=== PATIENT | male | born 1930 | race Caucasian/White ===

== ENCOUNTER → 2016-12-09 | Outpatient (REF) | payer MEDICARE ==
[~2016-12-09] MED LIST: /GLIP10TAB PO; /MOXI40TA PO; ASPI81TA85 PO; CORE25TA PO; LAMISIL; METF500T PO; SIMV10TA2 PO; SIMVPOW2 PO; TYLE650T30 PO; TYLENOL PO
== END ==
LOC: M LAB REF 12:57
PROVIDERS: ATTEND Nurse Practitioner Family
DX: R05 Cough (principal)

== ENCOUNTER 2018-04-08 17:34 | Inpatient (IN) | payer MEDICARE ==
[2018-04-08 18:26] LABS: BASO % 0.4 % (0.0-1.0); HEMATOCRIT 39.8 % (42.0-52.0); HEMOGLOBIN 13.4 g/dl (13.5-17.5); IMMATURE GRANULOCYTE % 0.4 % (0-3.0); LYMPH % 1.4 % (24.0-44.0); MEAN CORPUSCULAR HGB CONC 33.7 g/dl (32.0-36.5); MEAN CORPUSCULAR VOLUME 92.1 fl (80.0-96.0); MONO % 0.7 % (0.0-5.0); NEUTROPHILS # 2.7 10^3/uL (1.8-7.7); NEUTROPHILS % 97.1 % (36.0-66.0); PLATELET COUNT, AUTOMATED 122 10^3/uL (150-450); RED BLOOD COUNT 4.32 10^6/uL (4.30-6.10); RED CELL DISTRIBUTION WIDTH 12.8 % (11.5-14.5); WHITE BLOOD COUNT 2.8 10^3/uL (4.0-10.0)
[2018-04-08 18:31] LABS: VENOUS HCO3 22.5 MEQ/L (23.0-27.0); VENOUS O2 SATURATION 86.7 % (60.0-80.0); VENOUS PARTIAL PRESSURE CO2 41.7 mmHg (38.0-50.0); VENOUS PARTIAL PRESSURE O2 51.8 mmHg (30.0-50.0); VENOUS PH 7.349 UNITS (7.330-7.430); VENOUS STANDARD HCO3 21.7 MEQ/L; VENOUS TOTAL CO2 23.7 MEQ/L (24.0-28.0)
[2018-04-08] MEDS: IPRATROPIUM 0.5MG/ALBUTEROL 2.5MG INH SOL UD 3ML (DUONEB)(J7620) NEB (18:34)
[2018-04-08 18:40] LABS: ALBUMIN 2.7 GM/DL (3.2-5.2); ALBUMIN/GLOBULIN RATIO 0.77 (1.00-1.93); ALKALINE PHOSPHATASE 150 U/L (45-117); ALT/SGPT 380 U/L (12-78); ANION GAP 12 MEQ/L (8-16); AST/SGOT 402 U/L (7-37); BILIRUBIN,DIRECT 2.8 MG/DL (0.0-0.2); BLOOD UREA NITROGEN 27 MG/DL (7-18); CALCIUM LEVEL 8.3 MG/DL (8.8-10.2); CARBON DIOXIDE LEVEL 24 MEQ/L (21-32); CHLORIDE LEVEL 103 MEQ/L (98-107); CK-MB VALUE MASS < 1.0 NG/ML (<3.6); CPK CREATINE PHOSPHOKINASE 28 U/L (39-308); CREATININE FOR GFR 1.62 MG/DL (0.70-1.30); GLOMERULAR FILTRATION RATE 43.1 (>35); GLUCOSE, FASTING 221 MG/DL (70-100); MB/CK RELATIVE INDEX 3.57 (< OR =4); NT-PRO BNP 2503 PG/ML (<450); POTASSIUM SERUM 4.6 MEQ/L (3.5-5.1); SODIUM LEVEL 139 MEQ/L (136-145); TOTAL PROTEIN 6.2 GM/DL (6.4-8.2); TROPONIN I 0.02 NG/ML (< 0.10)
[2018-04-08] MEDS: ASPIRIN 81 MG CHEW TABLET PO (18:41)
[2018-04-08] MEDS: NS 1,000 ML IV ×5 (18:41→22:30)
[2018-04-08 18:42] LABS: LACTIC ACID SEPSIS PROTOCOL 4.4 MMOL/L (0.4-2.0)
[2018-04-08 18:53] LABS: POSITIVE DIFF POS FLAG; POSITIVE MORPH POS FLAG
[2018-04-08] MEDS: FUROSEMIDE 20 MG/2 ML VIAL (J1940) IV (19:38)
[2018-04-08 19:46] LABS: INR 1.23; PROTHROMBIN TIME 15.7 SECONDS (12.1-14.4)
[2018-04-08 20:14] LABS: CALCIUM OXALATE CRYSTALS RFX SMALL; KETONE, URINE AUTO RFX NEGATIVE (NEGATIVE); LEUKOCYTE ESTERASE UR AUTO RFX 3+ (NEGATIVE); MUCUS, URINE RFX SMALL (NEGATIVE); NITRITE, URINE AUTO RFX NEGATIVE (NEGATIVE); RBC, URINE AUTO RFX 27 /HPF (0-3); SPECIFIC GRAVITY UR AUTO RFX 1.017 (1.002-1.035); SQUAM EPITHELIAL CELL UR AURFX 2 /HPF (0-6); WBC, URINE AUTO RFX 108 /HPF (0-3)
[2018-04-08] MEDS: MOXIFLOXACIN HCL 400 MG in APPROPRIATE DILUENT 1 EA IV (20:25)
[2018-04-08] MEDS: HumaLOG INSULIN (NovoLOG) PER UNIT SC (21:00)
[2018-04-08] MEDS ORDERED: GLUCOSE 4 GM CHEW TABLET PO (21:30)
[2018-04-08] MEDS ORDERED: GLUCAGON FOR INJ 1 MG VIAL (J1610) SC (21:30)
[2018-04-08] MEDS ORDERED: DEXTROSE 50% 50 ML SYRINGE IV (21:30)
[2018-04-08 21:33] LABS: LIPASE 111 U/L (73-393)
[2018-04-08] MEDS: cefTRIAXone SOD 1 GM in D5W MINI-BAG PLUS 50 ML IV (21:34)
[2018-04-08] MEDS: VANCOMYCIN HCL 500 MG in D5W MINI-BAG PLUS 100 ML IV (21:34)
[2018-04-09] MEDS: HYDROCORTISONE 100 MG/2 ML VIAL (J1720) IV ×5 (00:43→23:42)
[2018-04-09 01:27] LABS: BEDSIDE GLUCOSE 201 MG/DL (83-110)
[2018-04-09] MEDS: NS 1,000 ML IV ×3 (02:05→11:37)
[2018-04-09] MEDS: CEFEPIME HCL 1 GM in D5W MINI-BAG PLUS 50 ML IV ×2 (02:05→13:52)
[2018-04-09] MEDS: PHENYLEPHRINE HCL INJ 50 MG in D5W 500 ML IV (03:02)
[2018-04-09] MEDS: HEPARIN SOD (PORCINE) 5000 UNITS/ML VIAL SC ×3 (05:12→21:39)
[2018-04-09 05:36] LABS: HEMATOCRIT 34.4 % (42.0-52.0); HEMOGLOBIN 11.7 g/dl (13.5-17.5); MEAN CORPUSCULAR HEMOGLOBIN 31.5 pg (27.0-33.0); MEAN CORPUSCULAR VOLUME 92.7 fl (80.0-96.0); PLATELET COUNT, AUTOMATED 109 10^3/uL (150-450); RED BLOOD COUNT 3.71 10^6/uL (4.30-6.10); RED CELL DISTRIBUTION WIDTH 13.2 % (11.5-14.5); WHITE BLOOD COUNT 20.5 10^3/uL (4.0-10.0)
[2018-04-09 05:45] LABS: ADD MANUAL DIFFER YES; DIFF SLIDE NUMBER 78; POSITIVE DIFF POS FLAG; POSITIVE MORPH POS FLAG
[2018-04-09 06:07] LABS: ALBUMIN 2.2 GM/DL (3.2-5.2); ALBUMIN/GLOBULIN RATIO 0.69 (1.00-1.93); ALKALINE PHOSPHATASE 101 U/L (45-117); ALT/SGPT 256 U/L (12-78); ANION GAP 12 MEQ/L (8-16); AST/SGOT 206 U/L (7-37); BILIRUBIN,TOTAL 4.9 MG/DL (0.2-1.0); BLOOD UREA NITROGEN 27 MG/DL (7-18); CALCIUM LEVEL 7.3 MG/DL (8.8-10.2); CARBON DIOXIDE LEVEL 21 MEQ/L (21-32); CHLORIDE LEVEL 108 MEQ/L (98-107); CREATININE FOR GFR 1.88 MG/DL (0.70-1.30); GLOMERULAR FILTRATION RATE 36.3 (>35); GLUCOSE, FASTING 227 MG/DL (70-100); POTASSIUM SERUM 4.1 MEQ/L (3.5-5.1); SODIUM LEVEL 141 MEQ/L (136-145); TOTAL PROTEIN 5.4 GM/DL (6.4-8.2)
[2018-04-09 07:15] LABS: BANDS 11 % (< 11); EOSINOPHILS 1 % (0-5); LYMPHOCYTES 3 % (16-52); MONOCYTES 7 % (0-8); NEUTROPHILS 78 % (35-75); PLATELET ESTIMATE DECREASED (NORMAL); POIKILOCYTOSIS 1+
[2018-04-09] MEDS: HumaLOG INSULIN (NovoLOG) PER UNIT SC ×4 (07:30→21:00)
[2018-04-09] MEDS ORDERED: NOREPINEPHRINE 4 MG/4 ML AMP As Ordered (09:00)
[2018-04-09] MEDS: NOREPINEPHRINE BITARTRATE 8 MG in D5W 492 ML IV (09:36)
[2018-04-09] MEDS: PANTOPRAZOLE 40MG TAB (PROTONIX) PO (10:17)
[2018-04-09] MEDS: ASCORBIC ACID 500 MG TAB PO (10:17)
[2018-04-09] MEDS: SENOKOT S TAB PO ×2 (10:17→21:00)
[2018-04-09 11:52] LABS: BEDSIDE GLUCOSE 225 MG/DL (83-110)
[2018-04-09] MEDS: NYSTATIN OINTMENT 15 GM TOP ×2 (15:59→21:39)
[2018-04-09 16:20] LABS: ABG BASE EXCESS -8.4 (-2.0-2.0); ABG DEVICE NASAL CANN; ABG HCO3 20.7 MEQ/L (22.0-26.0); ABG PARTIAL PRESSURE CO2 59.1 mmHg (35.0-45.0); ABG PARTIAL PRESSURE O2 76.3 mmHg (75.0-100.0); ABG STANDARD HCO3 17.6 MEQ/L (22.0-26.0); ABG TOTAL CO2 22.6 MEQ/L (23.0-31.0)
[2018-04-09 16:23] LABS: ABG pH (ARTERIAL) 7.163 UNITS (7.350-7.450)
[2018-04-09 17:23] LABS: BEDSIDE GLUCOSE 175 MG/DL (83-110)
[2018-04-09 17:28] LABS: ABG BASE EXCESS -7.8 (-2.0-2.0); ABG HCO3 18.9 MEQ/L (22.0-26.0); ABG O2 SATURATION 95.9 % (95.0-99.0); ABG PARTIAL PRESSURE CO2 42.8 mmHg (35.0-45.0); ABG PARTIAL PRESSURE O2 82.3 mmHg (75.0-100.0); ABG STANDARD HCO3 18.1 MEQ/L (22.0-26.0); ABG TOTAL CO2 20.2 MEQ/L (23.0-31.0); ABG pH (ARTERIAL) 7.262 UNITS (7.350-7.450)
[2018-04-09 20:03] LABS: ABG BASE EXCESS -7.1 (-2.0-2.0); ABG DEVICE BIPAP; ABG FIO2 30; ABG HCO3 16.9 MEQ/L (22.0-26.0); ABG O2 SATURATION 98.6 % (95.0-99.0); ABG PARTIAL PRESSURE O2 107.8 mmHg (75.0-100.0); ABG PATIENT RESP RATE 4 /MIN; ABG STANDARD HCO3 18.7 MEQ/L (22.0-26.0); ABG TOTAL CO2 17.8 MEQ/L (23.0-31.0); ABG pH (ARTERIAL) 7.369 UNITS (7.350-7.450)
[2018-04-09 20:17] LABS: ALBUMIN 2.3 GM/DL (3.2-5.2); ALKALINE PHOSPHATASE 109 U/L (45-117); ALT/SGPT 231 U/L (12-78); ANION GAP 12 MEQ/L (8-16); AST/SGOT 152 U/L (7-37); BILIRUBIN,TOTAL 5.3 MG/DL (0.2-1.0); BLOOD UREA NITROGEN 34 MG/DL (7-18); CARBON DIOXIDE LEVEL 22 MEQ/L (21-32); CHLORIDE LEVEL 106 MEQ/L (98-107); CREATININE FOR GFR 1.99 MG/DL (0.70-1.30); GLUCOSE, FASTING 152 MG/DL (70-100); SODIUM LEVEL 140 MEQ/L (136-145); TOTAL PROTEIN 5.6 GM/DL (6.4-8.2)
[2018-04-10] MEDS: CEFEPIME HCL 1 GM in D5W MINI-BAG PLUS 50 ML IV (00:14)
[2018-04-10] MEDS: NOREPINEPHRINE BITARTRATE 8 MG in D5W 492 ML IV (04:59)
[2018-04-10] MEDS: HYDROCORTISONE 100 MG/2 ML VIAL (J1720) IV ×3 (05:00→20:07)
[2018-04-10] MEDS: HEPARIN SOD (PORCINE) 5000 UNITS/ML VIAL SC ×3 (05:00→21:08)
[2018-04-10 05:06] LABS: HEMATOCRIT 36.3 % (42.0-52.0); HEMOGLOBIN 12.3 g/dl (13.5-17.5); MEAN CORPUSCULAR HEMOGLOBIN 31.5 pg (27.0-33.0); MEAN CORPUSCULAR HGB CONC 33.9 g/dl (32.0-36.5); MEAN CORPUSCULAR VOLUME 93.1 fl (80.0-96.0); PLATELET COUNT, AUTOMATED 156 10^3/uL (150-450); RED CELL DISTRIBUTION WIDTH 13.4 % (11.5-14.5); WHITE BLOOD COUNT 23.9 10^3/uL (4.0-10.0)
[2018-04-10 05:11] LABS: ADD MANUAL DIFFER YES; DIFF SLIDE NUMBER 41; POS COUNT POS FLAG; POSITIVE DIFF POS FLAG; POSITIVE MORPH POS FLAG
[2018-04-10 05:31] LABS: ALBUMIN 2.1 GM/DL (3.2-5.2); ALBUMIN/GLOBULIN RATIO 0.68 (1.00-1.93); ALKALINE PHOSPHATASE 104 U/L (45-117); ALT/SGPT 181 U/L (12-78); ANION GAP 11 MEQ/L (8-16); AST/SGOT 123 U/L (7-37); BLOOD UREA NITROGEN 40 MG/DL (7-18); CARBON DIOXIDE LEVEL 23 MEQ/L (21-32); CHLORIDE LEVEL 108 MEQ/L (98-107); CREATININE FOR GFR 1.95 MG/DL (0.70-1.30); GLOMERULAR FILTRATION RATE 34.8 (>35); GLUCOSE, FASTING 135 MG/DL (70-100); POTASSIUM SERUM 4.8 MEQ/L (3.5-5.1); SODIUM LEVEL 142 MEQ/L (136-145); TOTAL PROTEIN 5.2 GM/DL (6.4-8.2)
[2018-04-10 05:49] LABS: BANDS 2 % (< 11); LYMPHOCYTES 1 % (16-52); METAMYELOCYTES 2 % (0-0); MONOCYTES 1 % (0-8); NEUTROPHILS 94 % (35-75); PLATELET ESTIMATE NORMAL (NORMAL)
[2018-04-10 05:50] LABS: POIKILOCYTOSIS 1+
[2018-04-10 05:51] LABS: CRENATED RBC 1+
[2018-04-10] MEDS: HumaLOG INSULIN (NovoLOG) PER UNIT SC ×4 (07:30→21:00)
[2018-04-10 08:39] LABS: ABG BASE EXCESS -6.8 (-2.0-2.0); ABG HCO3 16.3 MEQ/L (22.0-26.0); ABG O2 SATURATION 98.4 % (95.0-99.0); ABG PARTIAL PRESSURE CO2 26.5 mmHg (35.0-45.0); ABG PARTIAL PRESSURE O2 100.8 mmHg (75.0-100.0); ABG TOTAL CO2 17.1 MEQ/L (23.0-31.0); ABG pH (ARTERIAL) 7.406 UNITS (7.350-7.450)
[2018-04-10] MEDS: ASCORBIC ACID 500 MG TAB PO (09:00)
[2018-04-10] MEDS: SENOKOT S TAB PO ×2 (09:00→21:07)
[2018-04-10] MEDS: NYSTATIN OINTMENT 15 GM TOP ×3 (09:44→21:08)
[2018-04-10] MEDS: PANTOPRAZOLE 40MG INJ (PROTONIX) (C9113) IV (09:44)
[2018-04-10] MEDS: MEROPENEM INJ 1 GM in APPROPRIATE DILUENT 1 EA IV (11:35)
[2018-04-10 13:20] LABS: BEDSIDE GLUCOSE 171 MG/DL (83-110)
[2018-04-10] MEDS: NS 1,000 ML IV ×2 (13:43→20:08)
[2018-04-10 14:06] LABS: ABG BASE EXCESS -6.5 (-2.0-2.0); ABG HCO3 16.7 MEQ/L (22.0-26.0); ABG O2 SATURATION 95.1 % (95.0-99.0); ABG PARTIAL PRESSURE CO2 27.5 mmHg (35.0-45.0); ABG PARTIAL PRESSURE O2 71.2 mmHg (75.0-100.0); ABG STANDARD HCO3 19.1 MEQ/L (22.0-26.0); ABG TOTAL CO2 17.5 MEQ/L (23.0-31.0); ABG pH (ARTERIAL) 7.401 UNITS (7.350-7.450)
[2018-04-10] MEDS: DIGOXIN INJ 0.5 MG/2 ML AMP (J1160) IV (14:52)
[2018-04-10] MEDS: SODIUM CHLORIDE 0.9% 1000 ML IV (15:15)
[2018-04-10 17:04] LABS: BEDSIDE GLUCOSE 171 MG/DL (83-110)
[2018-04-10] MEDS: AMIODARONE HCL 150 MG in APPROPRIATE DILUENT 1 EA IV ×2 (18:44→21:07)
[2018-04-10 21:14] LABS: BEDSIDE GLUCOSE 199 MG/DL (83-110)
[2018-04-11] MEDS: MEROPENEM INJ 1 GM in APPROPRIATE DILUENT 1 EA IV ×3 (00:01→23:00)
[2018-04-11] MEDS: HYDROCORTISONE 100 MG/2 ML VIAL (J1720) IV ×4 (00:51→21:25)
[2018-04-11] MEDS: NS 1,000 ML IV ×2 (03:14→17:10)
[2018-04-11 04:33] LABS: HEMATOCRIT 37.1 % (42.0-52.0); HEMOGLOBIN 12.3 g/dl (13.5-17.5); MEAN CORPUSCULAR HEMOGLOBIN 30.9 pg (27.0-33.0); MEAN CORPUSCULAR HGB CONC 33.2 g/dl (32.0-36.5); MEAN CORPUSCULAR VOLUME 93.2 fl (80.0-96.0); PLATELET COUNT, AUTOMATED 182 10^3/uL (150-450); RED BLOOD COUNT 3.98 10^6/uL (4.30-6.10); RED CELL DISTRIBUTION WIDTH 13.3 % (11.5-14.5); WHITE BLOOD COUNT 20.4 10^3/uL (4.0-10.0)
[2018-04-11 04:42] LABS: ADD MANUAL DIFFER YES; DIFF SLIDE NUMBER 19; POS COUNT POS FLAG; POSITIVE MORPH POS FLAG
[2018-04-11 04:49] LABS: GAMMA GLUTAMYLTRANSPEPTIDASE 93 U/L (15-85)
[2018-04-11 04:56] LABS: ALBUMIN 1.8 GM/DL (3.2-5.2); ALBUMIN/GLOBULIN RATIO 0.64 (1.00-1.93); ALKALINE PHOSPHATASE 89 U/L (45-117); ALT/SGPT 106 U/L (12-78); ANION GAP 12 MEQ/L (8-16); AST/SGOT 45 U/L (7-37); BLOOD UREA NITROGEN 52 MG/DL (7-18); CALCIUM LEVEL 6.4 MG/DL (8.8-10.2); CARBON DIOXIDE LEVEL 20 MEQ/L (21-32); CHLORIDE LEVEL 113 MEQ/L (98-107); CREATININE FOR GFR 1.91 MG/DL (0.70-1.30); GLOMERULAR FILTRATION RATE 35.7 (>35); GLUCOSE, FASTING 219 MG/DL (70-100); POTASSIUM SERUM 4.4 MEQ/L (3.5-5.1); SODIUM LEVEL 145 MEQ/L (136-145); TOTAL PROTEIN 4.6 GM/DL (6.4-8.2)
[2018-04-11 05:45] LABS: ATYPICAL LYMPH 1 % (0-5); BANDS 4 % (< 11); LYMPHOCYTES 3 % (16-52); MONOCYTES 3 % (0-8); NEUTROPHILS 89 % (35-75); PLATELET ESTIMATE NORMAL (NORMAL)
[2018-04-11 05:46] LABS: BURR CELLS 2+
[2018-04-11] MEDS: NOREPINEPHRINE BITARTRATE 8 MG in D5W 492 ML IV (05:57)
[2018-04-11] MEDS: HEPARIN SOD (PORCINE) 5000 UNITS/ML VIAL SC ×3 (05:58→21:25)
[2018-04-11 07:48] LABS: BEDSIDE GLUCOSE 204 MG/DL (83-110)
[2018-04-11] MEDS: ASCORBIC ACID 500 MG TAB PO (08:41)
[2018-04-11] MEDS: SENOKOT S TAB PO ×2 (08:41→21:26)
[2018-04-11] MEDS: PANTOPRAZOLE 40MG TAB (PROTONIX) PO (08:41)
[2018-04-11] MEDS: HumaLOG INSULIN (NovoLOG) PER UNIT SC ×4 (08:42→21:26)
[2018-04-11] MEDS: NYSTATIN OINTMENT 15 GM TOP ×3 (08:42→21:19)
[2018-04-11] MEDS: AMIODARONE HCL 150 MG in APPROPRIATE DILUENT 1 EA IV (11:17)
[2018-04-11 11:55] LABS: BEDSIDE GLUCOSE 268 MG/DL (83-110)
[2018-04-11 17:06] LABS: BEDSIDE GLUCOSE 210 MG/DL (83-110)
[2018-04-11] MEDS: FUROSEMIDE 20 MG/2 ML VIAL (J1940) IV (17:09)
[2018-04-11 21:17] LABS: BEDSIDE GLUCOSE 251 MG/DL (83-110)
[2018-04-12] MEDS: HYDROCORTISONE 100 MG/2 ML VIAL (J1720) IV ×3 (05:39→21:06)
[2018-04-12] MEDS: HEPARIN SOD (PORCINE) 5000 UNITS/ML VIAL SC ×3 (05:39→21:07)
[2018-04-12 06:12] LABS: HEMATOCRIT 37.3 % (42.0-52.0); HEMOGLOBIN 12.8 g/dl (13.5-17.5); MEAN CORPUSCULAR HEMOGLOBIN 31.8 pg (27.0-33.0); MEAN CORPUSCULAR HGB CONC 34.3 g/dl (32.0-36.5); MEAN CORPUSCULAR VOLUME 92.6 fl (80.0-96.0); PLATELET COUNT, AUTOMATED 194 10^3/uL (150-450); RED BLOOD COUNT 4.03 10^6/uL (4.30-6.10); RED CELL DISTRIBUTION WIDTH 13.4 % (11.5-14.5); WHITE BLOOD COUNT 15.9 10^3/uL (4.0-10.0)
[2018-04-12] MEDS: NOREPINEPHRINE BITARTRATE 8 MG in D5W 492 ML IV (06:31)
[2018-04-12 06:36] LABS: ALBUMIN 1.8 GM/DL (3.2-5.2); ALKALINE PHOSPHATASE 84 U/L (45-117); ALT/SGPT 76 U/L (12-78); ANION GAP 11 MEQ/L (8-16); AST/SGOT 18 U/L (7-37); BILIRUBIN,DIRECT 0.8 MG/DL (0.0-0.2); BILIRUBIN,TOTAL 1.1 MG/DL (0.2-1.0); BLOOD UREA NITROGEN 64 MG/DL (7-18); CALCIUM LEVEL 6.6 MG/DL (8.8-10.2); CARBON DIOXIDE LEVEL 21 MEQ/L (21-32); CHLORIDE LEVEL 112 MEQ/L (98-107); CREATININE FOR GFR 2.11 MG/DL (0.70-1.30); GLOMERULAR FILTRATION RATE 31.8 (>35); GLUCOSE, FASTING 254 MG/DL (70-100); MAGNESIUM LEVEL 1.7 MG/DL (1.8-2.4); PHOSPHORUS LEVEL 2.9 MG/DL (2.5-4.9); POTASSIUM SERUM 4.3 MEQ/L (3.5-5.1); SODIUM LEVEL 144 MEQ/L (136-145); TOTAL PROTEIN 4.8 GM/DL (6.4-8.2)
[2018-04-12] MEDS ORDERED: PROPOFOL 200 MG/20 ML VIAL As Ordered (08:26)
[2018-04-12] MEDS ORDERED: ROCURONIUM BROMIDE 50 MG/5 ML VIAL As Ordered (08:26)
[2018-04-12] MEDS ORDERED: LIDOCAINE 2% INJ 100 MG/5 ML SDV (FOR ANES.) As Ordered (08:26)
[2018-04-12] MEDS ORDERED: MIDAZOLAM INJ 2 MG/2 ML VIAL (J2250) As Ordered (08:27)
[2018-04-12] MEDS ORDERED: fentaNYL 100 MCG/2 ML INJECTION (J3010) As Ordered (08:27)
[2018-04-12] MEDS: HumaLOG INSULIN (NovoLOG) PER UNIT SC ×4 (08:30→21:00)
[2018-04-12] MEDS: ASCORBIC ACID 500 MG TAB PO (08:40)
[2018-04-12] MEDS: SENOKOT S TAB PO ×2 (08:40→21:06)
[2018-04-12] MEDS: PANTOPRAZOLE 40MG TAB (PROTONIX) PO (08:40)
[2018-04-12] MEDS: NYSTATIN OINTMENT 15 GM TOP ×3 (08:40→21:07)
[2018-04-12] MEDS: ISOVUE-300 61% 50ML VIAL (Q9967) As Ordered (12:34)
[2018-04-12] MEDS ORDERED: ONDANSETRON 4MG/2ML VIAL (J2405) As Ordered (12:39)
[2018-04-12] MEDS ORDERED: PHENYLephrine HCL 500 MCG/5 ML (100MCG/ML) SYRINGE (J2370) As Ordered (12:45)
[2018-04-12] MEDS ORDERED: SUGAMMADEX SODIUM 500 MG/5 ML VIAL (BRIDION) As Ordered (12:49)
[2018-04-12 13:29] LABS: BEDSIDE GLUCOSE 199 MG/DL (83-110)
[2018-04-12] MEDS ORDERED: ONDANSETRON 4MG/2ML VIAL (J2405) IV (13:30)
[2018-04-12] MEDS ORDERED: fentaNYL 100 MCG/2 ML INJECTION (J3010) IV (13:30)
[2018-04-12] MEDS: MEROPENEM INJ 1 GM in APPROPRIATE DILUENT 1 EA IV ×2 (14:14→22:05)
[2018-04-12 17:27] LABS: BEDSIDE GLUCOSE 207 MG/DL (83-110)
[2018-04-12 21:06] LABS: BEDSIDE GLUCOSE 193 MG/DL (83-110)
[2018-04-12] MEDS: NS 1,000 ML IV (22:05)
[2018-04-13] MEDS: HYDROCORTISONE 100 MG/2 ML VIAL (J1720) IV ×2 (05:54→17:42)
[2018-04-13] MEDS: HEPARIN SOD (PORCINE) 5000 UNITS/ML VIAL SC ×3 (05:54→20:36)
[2018-04-13 06:19] LABS: HEMATOCRIT 38.8 % (42.0-52.0); MEAN CORPUSCULAR HEMOGLOBIN 31.2 pg (27.0-33.0); MEAN CORPUSCULAR HGB CONC 33.5 g/dl (32.0-36.5); PLATELET COUNT, AUTOMATED 176 10^3/uL (150-450); RED BLOOD COUNT 4.17 10^6/uL (4.30-6.10); RED CELL DISTRIBUTION WIDTH 13.5 % (11.5-14.5); WHITE BLOOD COUNT 13.2 10^3/uL (4.0-10.0)
[2018-04-13 06:45] LABS: ALBUMIN 1.8 GM/DL (3.2-5.2); ALBUMIN/GLOBULIN RATIO 0.64 (1.00-1.93); ALKALINE PHOSPHATASE 78 U/L (45-117); ALT/SGPT 58 U/L (12-78); ANION GAP 11 MEQ/L (8-16); AST/SGOT 18 U/L (7-37); BILIRUBIN,DIRECT 0.7 MG/DL (0.0-0.2); BILIRUBIN,TOTAL 1.1 MG/DL (0.2-1.0); BLOOD UREA NITROGEN 72 MG/DL (7-18); CALCIUM LEVEL 6.9 MG/DL (8.8-10.2); CARBON DIOXIDE LEVEL 21 MEQ/L (21-32); CHLORIDE LEVEL 112 MEQ/L (98-107); CREATININE FOR GFR 2.29 MG/DL (0.70-1.30); GLOMERULAR FILTRATION RATE 28.9 (>35); GLUCOSE, FASTING 253 MG/DL (70-100); MAGNESIUM LEVEL 1.6 MG/DL (1.8-2.4); PHOSPHORUS LEVEL 3.4 MG/DL (2.5-4.9); POTASSIUM SERUM 4.3 MEQ/L (3.5-5.1); SODIUM LEVEL 144 MEQ/L (136-145); TOTAL PROTEIN 4.6 GM/DL (6.4-8.2)
[2018-04-13 08:15] LABS: BEDSIDE GLUCOSE 252 MG/DL (83-110)
[2018-04-13] MEDS: SENOKOT S TAB PO ×2 (08:28→20:35)
[2018-04-13] MEDS: HumaLOG INSULIN (NovoLOG) PER UNIT SC ×4 (08:28→20:35)
[2018-04-13] MEDS: PANTOPRAZOLE 40MG TAB (PROTONIX) PO (08:28)
[2018-04-13] MEDS: ASCORBIC ACID 500 MG TAB PO (08:28)
[2018-04-13] MEDS: NYSTATIN OINTMENT 15 GM TOP ×3 (08:29→20:35)
[2018-04-13] MEDS: MAG SULF 1GM/100ML (MAG RUN) 1 GM in APPROPRIATE DILUENT 1 EA IV (08:30)
[2018-04-13] MEDS: MEROPENEM INJ 1 GM in APPROPRIATE DILUENT 1 EA IV ×2 (10:32→23:00)
[2018-04-13 11:47] LABS: BEDSIDE GLUCOSE 245 MG/DL (83-110)
[2018-04-13 14:14] LABS: LIPASE 33460 U/L (73-393)
[2018-04-13] MEDS: ACETAMINOPHEN TAB 650MG DOSE (2X325MG) PO (16:18)
[2018-04-13 17:15] LABS: BEDSIDE GLUCOSE 228 MG/DL (83-110)
[2018-04-13 20:14] LABS: BEDSIDE GLUCOSE 198 MG/DL (83-110)
[2018-04-13] MEDS: NS 0.45% 1,000 ML IV (21:30)
[2018-04-14 00:42] LABS: CHLORIDE,RANDOM URINE < 10 MEQ/L; SODIUM,RANDOM URINE 20 MEQ/L
[2018-04-14 04:28] LABS: HEMATOCRIT 37.8 % (42.0-52.0); HEMOGLOBIN 12.8 g/dl (13.5-17.5); MEAN CORPUSCULAR HEMOGLOBIN 31.2 pg (27.0-33.0); MEAN CORPUSCULAR HGB CONC 33.9 g/dl (32.0-36.5); MEAN CORPUSCULAR VOLUME 92.2 fl (80.0-96.0); PLATELET COUNT, AUTOMATED 153 10^3/uL (150-450); RED CELL DISTRIBUTION WIDTH 13.5 % (11.5-14.5); WHITE BLOOD COUNT 16.1 10^3/uL (4.0-10.0)
[2018-04-14 05:00] LABS: NT-PRO BNP 33135 PG/ML (<450)
[2018-04-14 05:37] LABS: ALBUMIN 1.8 GM/DL (3.2-5.2); ALBUMIN/GLOBULIN RATIO 0.64 (1.00-1.93); ALKALINE PHOSPHATASE 77 U/L (45-117); ALT/SGPT 46 U/L (12-78); ANION GAP 12 MEQ/L (8-16); AST/SGOT 15 U/L (7-37); BILIRUBIN,DIRECT 0.6 MG/DL (0.0-0.2); BILIRUBIN,TOTAL 0.9 MG/DL (0.2-1.0); BLOOD UREA NITROGEN 72 MG/DL (7-18); CALCIUM LEVEL 6.7 MG/DL (8.8-10.2); CARBON DIOXIDE LEVEL 21 MEQ/L (21-32); CHLORIDE LEVEL 112 MEQ/L (98-107); CREATININE FOR GFR 2.05 MG/DL (0.70-1.30); GLOMERULAR FILTRATION RATE 32.9 (>35); GLUCOSE, FASTING 197 MG/DL (70-100); LIPASE 8367 U/L (73-393); MAGNESIUM LEVEL 2.1 MG/DL (1.8-2.4); PHOSPHORUS LEVEL 2.9 MG/DL (2.5-4.9); POTASSIUM SERUM 4.1 MEQ/L (3.5-5.1); SODIUM LEVEL 145 MEQ/L (136-145); TOTAL PROTEIN 4.6 GM/DL (6.4-8.2)
[2018-04-14] MEDS: HYDROCORTISONE 100 MG/2 ML VIAL (J1720) IV ×2 (06:00→16:55)
[2018-04-14] MEDS: HEPARIN SOD (PORCINE) 5000 UNITS/ML VIAL SC ×3 (06:00→21:09)
[2018-04-14] MEDS: ACETAMINOPHEN TAB 650MG DOSE (2X325MG) PO ×2 (06:06→10:43)
[2018-04-14] MEDS: HumaLOG INSULIN (NovoLOG) PER UNIT SC ×4 (08:03→21:00)
[2018-04-14] MEDS: SENOKOT S TAB PO ×2 (08:03→21:09)
[2018-04-14] MEDS: ASCORBIC ACID 500 MG TAB PO (08:03)
[2018-04-14] MEDS: PANTOPRAZOLE 40MG TAB (PROTONIX) PO (08:03)
[2018-04-14] MEDS: NYSTATIN OINTMENT 15 GM TOP ×3 (08:04→21:09)
[2018-04-14] MEDS: MEROPENEM INJ 1 GM in APPROPRIATE DILUENT 1 EA IV (10:42)
[2018-04-14] MEDS: NS 0.45% 1,000 ML IV (10:42)
[2018-04-14 12:07] LABS: BEDSIDE GLUCOSE 182 MG/DL (83-110)
[2018-04-14 16:45] LABS: BEDSIDE GLUCOSE 217 MG/DL (83-110)
[2018-04-14] MEDS ORDERED: SODIUM CHLORIDE 0.9% INJ 10 ML SYR IV (17:00)
[2018-04-14 20:31] LABS: APPEARANCE, URINE CLOUDY (CLEAR); BACTERIA, URINE AUTO 1+ (NEGATIVE); BILIRUBIN, URINE AUTO NEGATIVE (NEGATIVE); BLOOD, URINE BLOOD 1+ (NEGATIVE); COLOR, URINE YELLOW (YELLOW); GLUCOSE, URINE (UA) AUTO 1+ mg/dL (NEGATIVE); GRANULAR CAST, URINE AUTO 4 /LPF; KETONE, URINE AUTO NEGATIVE (NEGATIVE); LEUKOCYTE ESTERASE, URINE AUTO 3+ (NEGATIVE); MUCUS, URINE SMALL (NEGATIVE); NITRITE, URINE AUTO NEGATIVE (NEGATIVE); PROTEIN, URINE AUTO 1+ mg/dL (NEGATIVE); RBC, URINE AUTO 40 /HPF (0-3); SPECIFIC GRAVITY URINE AUTO 1.018 (1.002-1.035); SQUAMOUS EPITHELIAL CELL UR AU 0 /HPF (0-6); UROBILINOGEN, URINE AUTO 0.2 mg/dL (0.0-2.0); WBC, URINE AUTO 109 /HPF (0-3); YEAST LIKE CELL URINE AUTO LARGE
[2018-04-14 20:49] LABS: BEDSIDE GLUCOSE 194 MG/DL (83-110)
[2018-04-14] MEDS: SODIUM CHLORIDE 0.9% INJ 10 ML SYR IV (21:09)
[2018-04-15] MEDS: MEROPENEM INJ 1 GM in APPROPRIATE DILUENT 1 EA IV ×3 (00:53→22:34)
[2018-04-15] MEDS: HYDROCORTISONE 100 MG/2 ML VIAL (J1720) IV ×2 (05:39→17:21)
[2018-04-15] MEDS: HEPARIN SOD (PORCINE) 5000 UNITS/ML VIAL SC ×3 (05:39→21:53)
[2018-04-15] MEDS: SODIUM CHLORIDE 0.9% INJ 10 ML SYR IV ×3 (05:39→22:34)
[2018-04-15 05:53] LABS: HEMATOCRIT 36.7 % (42.0-52.0); HEMOGLOBIN 12.6 g/dl (13.5-17.5); MEAN CORPUSCULAR HGB CONC 34.3 g/dl (32.0-36.5); MEAN CORPUSCULAR VOLUME 90.4 fl (80.0-96.0); PLATELET COUNT, AUTOMATED 158 10^3/uL (150-450); RED BLOOD COUNT 4.06 10^6/uL (4.30-6.10); RED CELL DISTRIBUTION WIDTH 13.2 % (11.5-14.5); WHITE BLOOD COUNT 17.5 10^3/uL (4.0-10.0)
[2018-04-15 06:17] LABS: ALBUMIN 1.6 GM/DL (3.2-5.2); ALBUMIN/GLOBULIN RATIO 0.57 (1.00-1.93); ALKALINE PHOSPHATASE 74 U/L (45-117); ALT/SGPT 34 U/L (12-78); ANION GAP 9 MEQ/L (8-16); AST/SGOT 14 U/L (7-37); BILIRUBIN,DIRECT 0.6 MG/DL (0.0-0.2); BLOOD UREA NITROGEN 66 MG/DL (7-18); CALCIUM LEVEL 6.5 MG/DL (8.8-10.2); CARBON DIOXIDE LEVEL 23 MEQ/L (21-32); CHLORIDE LEVEL 110 MEQ/L (98-107); CREATININE FOR GFR 1.71 MG/DL (0.70-1.30); GLOMERULAR FILTRATION RATE 40.5 (>35); GLUCOSE, FASTING 180 MG/DL (70-100); LIPASE 1332 U/L (73-393); PHOSPHORUS LEVEL 2.2 MG/DL (2.5-4.9); POTASSIUM SERUM 3.8 MEQ/L (3.5-5.1); SODIUM LEVEL 142 MEQ/L (136-145); TOTAL PROTEIN 4.4 GM/DL (6.4-8.2)
[2018-04-15] MEDS: SENOKOT S TAB PO ×2 (08:08→21:52)
[2018-04-15] MEDS: HumaLOG INSULIN (NovoLOG) PER UNIT SC ×4 (08:08→21:53)
[2018-04-15] MEDS: ASCORBIC ACID 500 MG TAB PO (08:08)
[2018-04-15] MEDS: NYSTATIN OINTMENT 15 GM TOP ×3 (08:09→21:56)
[2018-04-15] MEDS: PANTOPRAZOLE 40MG TAB (PROTONIX) PO (08:09)
[2018-04-15 12:21] LABS: BEDSIDE GLUCOSE 218 MG/DL (83-110)
[2018-04-15 16:56] LABS: BEDSIDE GLUCOSE 165 MG/DL (83-110)
[2018-04-15 21:26] LABS: BEDSIDE GLUCOSE 230 MG/DL (83-110)
[2018-04-16] MEDS: HYDROCORTISONE 100 MG/2 ML VIAL (J1720) IV ×2 (05:32→17:06)
[2018-04-16] MEDS: HEPARIN SOD (PORCINE) 5000 UNITS/ML VIAL SC (05:33)
[2018-04-16] MEDS: SODIUM CHLORIDE 0.9% INJ 10 ML SYR IV ×3 (05:33→20:46)
[2018-04-16 05:55] LABS: HEMATOCRIT 35.4 % (42.0-52.0); HEMOGLOBIN 12.2 g/dl (13.5-17.5); MEAN CORPUSCULAR HEMOGLOBIN 30.9 pg (27.0-33.0); MEAN CORPUSCULAR HGB CONC 34.5 g/dl (32.0-36.5); MEAN CORPUSCULAR VOLUME 89.6 fl (80.0-96.0); PLATELET COUNT, AUTOMATED 171 10^3/uL (150-450); RED BLOOD COUNT 3.95 10^6/uL (4.30-6.10); RED CELL DISTRIBUTION WIDTH 13.3 % (11.5-14.5)
[2018-04-16 06:18] LABS: ALBUMIN 1.4 GM/DL (3.2-5.2); ALBUMIN/GLOBULIN RATIO 0.48 (1.00-1.93); ALKALINE PHOSPHATASE 69 U/L (45-117); ALT/SGPT 27 U/L (12-78); ANION GAP 9 MEQ/L (8-16); AST/SGOT 24 U/L (7-37); BILIRUBIN,DIRECT 0.5 MG/DL (0.0-0.2); BILIRUBIN,TOTAL 1.1 MG/DL (0.2-1.0); BLOOD UREA NITROGEN 58 MG/DL (7-18); CARBON DIOXIDE LEVEL 23 MEQ/L (21-32); CHLORIDE LEVEL 110 MEQ/L (98-107); CREATININE FOR GFR 1.51 MG/DL (0.70-1.30); GLOMERULAR FILTRATION RATE 46.8 (>35); GLUCOSE, FASTING 173 MG/DL (70-100); PHOSPHORUS LEVEL 2.4 MG/DL (2.5-4.9); POTASSIUM SERUM 4.1 MEQ/L (3.5-5.1); SODIUM LEVEL 142 MEQ/L (136-145); TOTAL PROTEIN 4.3 GM/DL (6.4-8.2)
[2018-04-16] MEDS: ASCORBIC ACID 500 MG TAB PO (08:49)
[2018-04-16] MEDS: SENOKOT S TAB PO ×2 (08:49→20:43)
[2018-04-16] MEDS: PANTOPRAZOLE 40MG TAB (PROTONIX) PO (08:49)
[2018-04-16] MEDS: NYSTATIN OINTMENT 15 GM TOP ×3 (08:50→20:44)
[2018-04-16] MEDS: HumaLOG INSULIN (NovoLOG) PER UNIT SC ×4 (08:50→20:44)
[2018-04-16] MEDS: MEROPENEM INJ 1 GM in APPROPRIATE DILUENT 1 EA IV (11:00)
[2018-04-16] MEDS: ACYCLOVIR 200 MG CAPSULE PO ×3 (14:29→20:44)
[2018-04-16] MEDS: CHLORHEXIDINE ORAL RINSE 0.12%/15ML 120ML BOTTLE SSP ×2 (16:16→20:44)
[2018-04-16 17:01] LABS: BEDSIDE GLUCOSE 235 MG/DL (83-110)
[2018-04-16 20:28] LABS: BEDSIDE GLUCOSE 240 MG/DL (83-110)
[2018-04-16] MEDS: APIXABAN 2.5 MG TAB (ELIQUIS) PO (20:44)
[2018-04-16] MEDS: TAMSULOSIN 0.4 MG CAP PO (20:44)
[2018-04-16] MEDS: FINASTERIDE 5 MG TAB PO (20:44)
[2018-04-17 05:12] LABS: HEMOGLOBIN 12.2 g/dl (13.5-17.5); MEAN CORPUSCULAR HEMOGLOBIN 31.5 pg (27.0-33.0); MEAN CORPUSCULAR HGB CONC 34.9 g/dl (32.0-36.5); MEAN CORPUSCULAR VOLUME 90.4 fl (80.0-96.0); PLATELET COUNT, AUTOMATED 190 10^3/uL (150-450); RED BLOOD COUNT 3.87 10^6/uL (4.30-6.10); RED CELL DISTRIBUTION WIDTH 13.5 % (11.5-14.5); WHITE BLOOD COUNT 12.6 10^3/uL (4.0-10.0)
[2018-04-17 05:42] LABS: ALBUMIN 1.6 GM/DL (3.2-5.2); ALBUMIN/GLOBULIN RATIO 0.55 (1.00-1.93); ALKALINE PHOSPHATASE 87 U/L (45-117); ALT/SGPT 30 U/L (12-78); ANION GAP 11 MEQ/L (8-16); AST/SGOT 19 U/L (7-37); BILIRUBIN,DIRECT 0.6 MG/DL (0.0-0.2); BLOOD UREA NITROGEN 58 MG/DL (7-18); CALCIUM LEVEL 7.2 MG/DL (8.8-10.2); CARBON DIOXIDE LEVEL 21 MEQ/L (21-32); CHLORIDE LEVEL 111 MEQ/L (98-107); CREATININE FOR GFR 1.52 MG/DL (0.70-1.30); GLOMERULAR FILTRATION RATE 46.4 (>35); GLUCOSE, FASTING 216 MG/DL (70-100); MAGNESIUM LEVEL 1.9 MG/DL (1.8-2.4); POTASSIUM SERUM 3.9 MEQ/L (3.5-5.1); SODIUM LEVEL 143 MEQ/L (136-145); TOTAL PROTEIN 4.5 GM/DL (6.4-8.2)
[2018-04-17] MEDS: SODIUM CHLORIDE 0.9% INJ 10 ML SYR IV ×3 (05:53→20:41)
[2018-04-17] MEDS: LevoFLOXacin 250 MG TABLET PO (05:53)
[2018-04-17] MEDS: ACYCLOVIR 200 MG CAPSULE PO ×4 (05:53→20:40)
[2018-04-17] MEDS: HYDROCORTISONE 100 MG/2 ML VIAL (J1720) IV ×2 (05:53→16:46)
[2018-04-17] MEDS: NYSTATIN OINTMENT 15 GM TOP ×3 (08:14→20:41)
[2018-04-17] MEDS: APIXABAN 2.5 MG TAB (ELIQUIS) PO ×2 (08:14→20:40)
[2018-04-17] MEDS: SENOKOT S TAB PO ×2 (08:14→20:40)
[2018-04-17] MEDS: PANTOPRAZOLE 40MG TAB (PROTONIX) PO (08:14)
[2018-04-17] MEDS: CHLORHEXIDINE ORAL RINSE 0.12%/15ML 120ML BOTTLE SSP ×3 (08:14→20:41)
[2018-04-17] MEDS: ASCORBIC ACID 500 MG TAB PO (08:14)
[2018-04-17] MEDS: HumaLOG INSULIN (NovoLOG) PER UNIT SC ×4 (08:15→20:41)
[2018-04-17 12:28] LABS: BEDSIDE GLUCOSE 257 MG/DL (83-110)
[2018-04-17 16:34] LABS: BEDSIDE GLUCOSE 141 MG/DL (83-110)
[2018-04-17 20:36] LABS: BEDSIDE GLUCOSE 241 MG/DL (83-110)
[2018-04-17] MEDS: FINASTERIDE 5 MG TAB PO (20:40)
[2018-04-17] MEDS: TAMSULOSIN 0.4 MG CAP PO (20:40)
[2018-04-18 05:23] LABS: HEMATOCRIT 33.7 % (42.0-52.0); HEMOGLOBIN 11.4 g/dl (13.5-17.5); MEAN CORPUSCULAR HEMOGLOBIN 30.5 pg (27.0-33.0); MEAN CORPUSCULAR HGB CONC 33.8 g/dl (32.0-36.5); MEAN CORPUSCULAR VOLUME 90.1 fl (80.0-96.0); PLATELET COUNT, AUTOMATED 189 10^3/uL (150-450); RED BLOOD COUNT 3.74 10^6/uL (4.30-6.10); RED CELL DISTRIBUTION WIDTH 13.3 % (11.5-14.5); WHITE BLOOD COUNT 10.3 10^3/uL (4.0-10.0)
[2018-04-18 05:33] LABS: ALBUMIN 1.7 GM/DL (3.2-5.2); ALBUMIN/GLOBULIN RATIO 0.55 (1.00-1.93); ALKALINE PHOSPHATASE 86 U/L (45-117); ALT/SGPT 27 U/L (12-78); ANION GAP 7 MEQ/L (8-16); AST/SGOT 18 U/L (7-37); BILIRUBIN,DIRECT 0.5 MG/DL (0.0-0.2); BILIRUBIN,TOTAL 1.1 MG/DL (0.2-1.0); BLOOD UREA NITROGEN 53 MG/DL (7-18); CALCIUM LEVEL 7.2 MG/DL (8.8-10.2); CARBON DIOXIDE LEVEL 24 MEQ/L (21-32); CHLORIDE LEVEL 113 MEQ/L (98-107); CREATININE FOR GFR 1.23 MG/DL (0.70-1.30); GLOMERULAR FILTRATION RATE 59.3 (>35); GLUCOSE, FASTING 234 MG/DL (70-100); MAGNESIUM LEVEL 1.9 MG/DL (1.8-2.4); PHOSPHORUS LEVEL 2.1 MG/DL (2.5-4.9); SODIUM LEVEL 144 MEQ/L (136-145); TOTAL PROTEIN 4.8 GM/DL (6.4-8.2)
[2018-04-18] MEDS: SODIUM CHLORIDE 0.9% INJ 10 ML SYR IV ×3 (06:21→21:14)
[2018-04-18] MEDS: HYDROCORTISONE 100 MG/2 ML VIAL (J1720) IV (06:21)
[2018-04-18] MEDS: LevoFLOXacin 250 MG TABLET PO (06:21)
[2018-04-18] MEDS: HumaLOG INSULIN (NovoLOG) PER UNIT SC ×4 (07:43→21:14)
[2018-04-18] MEDS: ACYCLOVIR 200 MG CAPSULE PO ×3 (09:00→21:10)
[2018-04-18] MEDS: APIXABAN 2.5 MG TAB (ELIQUIS) PO ×2 (09:00→21:11)
[2018-04-18] MEDS: PANTOPRAZOLE 40MG TAB (PROTONIX) PO (09:00)
[2018-04-18] MEDS: ASCORBIC ACID 500 MG TAB PO (09:00)
[2018-04-18] MEDS: CHLORHEXIDINE ORAL RINSE 0.12%/15ML 120ML BOTTLE SSP ×3 (09:01→21:11)
[2018-04-18] MEDS: SENOKOT S TAB PO ×2 (09:01→21:10)
[2018-04-18] MEDS: NYSTATIN OINTMENT 15 GM TOP ×3 (09:01→21:11)
[2018-04-18 12:05] LABS: BEDSIDE GLUCOSE 268 MG/DL (83-110)
[2018-04-18 16:54] LABS: BEDSIDE GLUCOSE 212 MG/DL (83-110)
[2018-04-18] MEDS: FINASTERIDE 5 MG TAB PO (21:10)
[2018-04-18] MEDS: TAMSULOSIN 0.4 MG CAP PO (21:10)
[2018-04-18 21:16] LABS: BEDSIDE GLUCOSE 169 MG/DL (83-110)
[2018-04-19] MEDS: SODIUM CHLORIDE 0.9% INJ 10 ML SYR IV ×3 (05:50→20:58)
[2018-04-19] MEDS: LevoFLOXacin 250 MG TABLET PO (05:50)
[2018-04-19 06:46] LABS: BEDSIDE GLUCOSE 212 MG/DL (83-110)
[2018-04-19] MEDS: HumaLOG INSULIN (NovoLOG) PER UNIT SC ×4 (07:38→20:54)
[2018-04-19] MEDS: ASCORBIC ACID 500 MG TAB PO (09:44)
[2018-04-19] MEDS: SENOKOT S TAB PO ×2 (09:44→20:53)
[2018-04-19] MEDS: ACYCLOVIR 200 MG CAPSULE PO ×3 (09:44→20:53)
[2018-04-19] MEDS: APIXABAN 2.5 MG TAB (ELIQUIS) PO ×2 (09:45→20:54)
[2018-04-19] MEDS: CHLORHEXIDINE ORAL RINSE 0.12%/15ML 120ML BOTTLE SSP (09:45)
[2018-04-19] MEDS: PANTOPRAZOLE 40MG TAB (PROTONIX) PO (09:45)
[2018-04-19] MEDS: HYDROCORTISONE 100 MG/2 ML VIAL (J1720) IV (09:46)
[2018-04-19] MEDS: NYSTATIN OINTMENT 15 GM TOP ×3 (09:46→20:58)
[2018-04-19] MEDS: FUROSEMIDE 20 MG/2 ML VIAL (J1940) IV (10:59)
[2018-04-19 12:13] LABS: BEDSIDE GLUCOSE 225 MG/DL (83-110)
[2018-04-19] MEDS: ACETAMINOPHEN TAB 650MG DOSE (2X325MG) PO (16:19)
[2018-04-19 17:22] LABS: BEDSIDE GLUCOSE 195 MG/DL (83-110)
[2018-04-19] MEDS: FINASTERIDE 5 MG TAB PO (20:53)
[2018-04-19] MEDS: CARVedilol 6.25 MG TAB PO (20:54)
[2018-04-19] MEDS: TAMSULOSIN 0.4 MG CAP PO (20:54)
[2018-04-19 20:55] LABS: BEDSIDE GLUCOSE 212 MG/DL (83-110)
[2018-04-20] MEDS: SODIUM CHLORIDE 0.9% INJ 10 ML SYR IV (05:20)
[2018-04-20] MEDS: LevoFLOXacin 500 MG TABLET PO (05:20)
[2018-04-20 05:26] LABS: HEMATOCRIT 32.3 % (42.0-52.0); HEMOGLOBIN 11.2 g/dl (13.5-17.5); MEAN CORPUSCULAR HGB CONC 34.7 g/dl (32.0-36.5); MEAN CORPUSCULAR VOLUME 89.5 fl (80.0-96.0); PLATELET COUNT, AUTOMATED 186 10^3/uL (150-450); RED BLOOD COUNT 3.61 10^6/uL (4.30-6.10); RED CELL DISTRIBUTION WIDTH 13.3 % (11.5-14.5); WHITE BLOOD COUNT 8.5 10^3/uL (4.0-10.0)
[2018-04-20 05:46] LABS: ALBUMIN 1.7 GM/DL (3.2-5.2); ALBUMIN/GLOBULIN RATIO 0.52 (1.00-1.93); ALKALINE PHOSPHATASE 92 U/L (45-117); ALT/SGPT 26 U/L (12-78); ANION GAP 7 MEQ/L (8-16); AST/SGOT 20 U/L (7-37); BILIRUBIN,TOTAL 1.3 MG/DL (0.2-1.0); BLOOD UREA NITROGEN 40 MG/DL (7-18); CALCIUM LEVEL 7.3 MG/DL (8.8-10.2); CARBON DIOXIDE LEVEL 23 MEQ/L (21-32); CHLORIDE LEVEL 113 MEQ/L (98-107); CREATININE FOR GFR 1.19 MG/DL (0.70-1.30); GLOMERULAR FILTRATION RATE > 60.0 (>35); GLUCOSE, FASTING 224 MG/DL (70-100); MAGNESIUM LEVEL 1.8 MG/DL (1.8-2.4); POTASSIUM SERUM 4.2 MEQ/L (3.5-5.1); SODIUM LEVEL 143 MEQ/L (136-145)
[2018-04-20] MEDS: PANTOPRAZOLE 40MG TAB (PROTONIX) PO (08:28)
[2018-04-20] MEDS: HumaLOG INSULIN (NovoLOG) PER UNIT SC ×4 (08:28→20:45)
[2018-04-20] MEDS: SENOKOT S TAB PO ×2 (08:28→20:50)
[2018-04-20] MEDS: ACYCLOVIR 200 MG CAPSULE PO ×3 (08:29→20:49)
[2018-04-20] MEDS: APIXABAN 2.5 MG TAB (ELIQUIS) PO ×2 (08:29→20:49)
[2018-04-20] MEDS: CARVedilol 6.25 MG TAB PO ×2 (08:29→20:49)
[2018-04-20] MEDS: ASCORBIC ACID 500 MG TAB PO (08:29)
[2018-04-20] MEDS: HYDROCORTISONE 100 MG/2 ML VIAL (J1720) IV (08:30)
[2018-04-20] MEDS: NYSTATIN OINTMENT 15 GM TOP ×3 (08:30→20:50)
[2018-04-20 11:34] LABS: BEDSIDE GLUCOSE 192 MG/DL (83-110)
[2018-04-20] MEDS: FUROSEMIDE 20 MG/2 ML VIAL (J1940) IV ×2 (12:16→16:37)
[2018-04-20] MEDS ORDERED: SLF 3 ML SYR IV (14:00)
[2018-04-20] MEDS: SLF 3 ML SYR IV ×2 (14:00→20:49)
[2018-04-20 16:26] LABS: BEDSIDE GLUCOSE 217 MG/DL (83-110)
[2018-04-20 20:45] LABS: BEDSIDE GLUCOSE 178 MG/DL (83-110)
[2018-04-20] MEDS: TAMSULOSIN 0.4 MG CAP PO (20:49)
[2018-04-20] MEDS: FINASTERIDE 5 MG TAB PO (20:49)
[2018-04-21 05:05] LABS: ALBUMIN 1.7 GM/DL (3.2-5.2); ALBUMIN/GLOBULIN RATIO 0.55 (1.00-1.93); ALKALINE PHOSPHATASE 88 U/L (45-117); ALT/SGPT 26 U/L (12-78); ANION GAP 6 MEQ/L (8-16); AST/SGOT 19 U/L (7-37); BILIRUBIN,TOTAL 1.1 MG/DL (0.2-1.0); BLOOD UREA NITROGEN 39 MG/DL (7-18); CALCIUM LEVEL 7.3 MG/DL (8.8-10.2); CARBON DIOXIDE LEVEL 27 MEQ/L (21-32); CHLORIDE LEVEL 111 MEQ/L (98-107); CREATININE FOR GFR 1.18 MG/DL (0.70-1.30); GLOMERULAR FILTRATION RATE > 60.0 (>35); GLUCOSE, FASTING 201 MG/DL (70-100); MAGNESIUM LEVEL 1.6 MG/DL (1.8-2.4); POTASSIUM SERUM 3.8 MEQ/L (3.5-5.1); SODIUM LEVEL 144 MEQ/L (136-145); TOTAL PROTEIN 4.8 GM/DL (6.4-8.2)
[2018-04-21] MEDS: LevoFLOXacin 500 MG TABLET PO (06:05)
[2018-04-21] MEDS: SLF 3 ML SYR IV ×3 (06:05→20:15)
[2018-04-21] MEDS: MAG SULF 1GM/100ML (MAG RUN) 1 GM in APPROPRIATE DILUENT 1 EA IV (07:28)
[2018-04-21] MEDS: HumaLOG INSULIN (NovoLOG) PER UNIT SC ×4 (07:28→20:14)
[2018-04-21] MEDS: APIXABAN 2.5 MG TAB (ELIQUIS) PO ×2 (08:08→20:22)
[2018-04-21] MEDS: SENOKOT S TAB PO ×2 (08:08→20:22)
[2018-04-21] MEDS: ACYCLOVIR 200 MG CAPSULE PO ×3 (08:08→20:23)
[2018-04-21] MEDS: FUROSEMIDE 20 MG/2 ML VIAL (J1940) IV ×2 (08:08→16:52)
[2018-04-21] MEDS: PANTOPRAZOLE 40MG TAB (PROTONIX) PO (08:08)
[2018-04-21] MEDS: ASCORBIC ACID 500 MG TAB PO (08:09)
[2018-04-21] MEDS: NYSTATIN OINTMENT 15 GM TOP ×3 (08:09→20:23)
[2018-04-21] MEDS: CARVedilol 6.25 MG TAB PO ×2 (08:09→20:23)
[2018-04-21 11:37] LABS: BEDSIDE GLUCOSE 304 MG/DL (83-110)
[2018-04-21 14:21] LABS: HEMATOCRIT 36.5 % (42.0-52.0); HEMOGLOBIN 12.2 g/dl (13.5-17.5); MEAN CORPUSCULAR HEMOGLOBIN 31.4 pg (27.0-33.0); MEAN CORPUSCULAR HGB CONC 33.4 g/dl (32.0-36.5); MEAN CORPUSCULAR VOLUME 93.8 fl (80.0-96.0); PLATELET COUNT, AUTOMATED 249 10^3/uL (150-450); RED BLOOD COUNT 3.89 10^6/uL (4.30-6.10); RED CELL DISTRIBUTION WIDTH 13.6 % (11.5-14.5); WHITE BLOOD COUNT 9.1 10^3/uL (4.0-10.0)
[2018-04-21 16:48] LABS: BEDSIDE GLUCOSE 189 MG/DL (83-110)
[2018-04-21 20:13] LABS: BEDSIDE GLUCOSE 246 MG/DL (83-110)
[2018-04-21] MEDS: FINASTERIDE 5 MG TAB PO (20:23)
[2018-04-21] MEDS: TAMSULOSIN 0.4 MG CAP PO (20:23)
== END 2018-04-21 20:57 | DRG 871 ==
LOC: M ICU 04-09 01:11 → M PCU 04-15 09:07 → M ED 17:34 → M ED INP 21:10
PROC: 0F798DZ Dilation of Common Bile Duct with Intraluminal Device, Via Natural or Artificial Opening Endoscopic (ICD-10-PCS; principal; 2018-04-12 12:02)
PROC: 02HV33Z Insertion of Infusion Device into Superior Vena Cava, Percutaneous Approach (ICD-10-PCS; 2018-04-12 12:02)
DX: A41.51 Sepsis due to Escherichia coli [E. coli] (principal); R65.21 Severe sepsis with septic shock; J96.91 Respiratory failure, unspecified with hypoxia; G93.41 Metabolic encephalopathy; N39.0 Urinary tract infection, site not specified; N17.9 Acute kidney failure, unspecified; N18.4 Chronic kidney disease, stage 4 (severe); K83.0 Cholangitis; I12.9 Hypertensive chronic kidney disease with stage 1 through stage 4 chronic kidney disease, or unspecified chronic kidney disease; I48.91 Unspecified atrial fibrillation; Z88.0 Allergy status to penicillin; Z79.899 Other long term (current) drug therapy; E11.9 Type 2 diabetes mellitus without complications; E78.5 Hyperlipidemia, unspecified; B00.9 Herpesviral infection, unspecified

== ENCOUNTER 2018-04-21 21:00 | Inpatient (IN) | payer MEDICARE ==
[2018-04-21] MEDS: HumaLOG INSULIN (NovoLOG) PER UNIT SC ×2 (17:30→22:10)
[~2018-04-21 21:00] MED LIST changes: -/GLIP10TAB PO; -/MOXI40TA PO; -ASPI81TA85 PO; +BISACODYL 10 MG SUPP PR; +BISACODYL 5 MG TAB PO; +CARVedilol 6.25 MG TAB PO; -CORE25TA PO; +DEXTROSE 50% 50 ML SYRINGE IV; +FLEET ENEMA PR; +GLUCAGON FOR INJ 1 MG VIAL (J1610) SC; +GLUCOSE 4 GM CHEW TABLET PO; -LAMISIL; -METF500T PO; +MOM 30ML SUSPENSION UDC PO; +ONDANSETRON 4 MG TAB (S0181) PO; -SIMV10TA2 PO; -SIMVPOW2 PO; +SLF 3 ML SYR IV; -TYLE650T30 PO; -TYLENOL PO
[2018-04-21] MEDS ORDERED: SLF 3 ML SYR IV (22:00)
[2018-04-22] MEDS: LevoFLOXacin 500 MG TABLET PO (06:00)
[2018-04-22 07:37] LABS: BASO % 0.2 % (0.0-1.0); EOS # 0.1 10^3/uL (0.0-0.50); EOS % 1.8 % (0.0-3.0); HEMATOCRIT 32.4 % (42.0-52.0); HEMOGLOBIN 10.9 g/dl (13.5-17.5); IMMATURE GRANULOCYTE % 0.6 % (0-3.0); LYMPH # 0.5 10^3/uL (1.5-4.5); LYMPH % 9.7 % (24.0-44.0); MEAN CORPUSCULAR HEMOGLOBIN 30.7 pg (27.0-33.0); MEAN CORPUSCULAR HGB CONC 33.6 g/dl (32.0-36.5); MEAN CORPUSCULAR VOLUME 91.3 fl (80.0-96.0); MONO # 0.8 10^3/uL (0.0-0.8); MONO % 15.9 % (0.0-5.0); NEUTROPHILS # 3.6 10^3/uL (1.8-7.7); NEUTROPHILS % 71.8 % (36.0-66.0); PLATELET COUNT, AUTOMATED 215 10^3/uL (150-450); RED BLOOD COUNT 3.55 10^6/uL (4.30-6.10); RED CELL DISTRIBUTION WIDTH 13.2 % (11.5-14.5)
[2018-04-22 07:45] LABS: BEDSIDE GLUCOSE 216 MG/DL (83-110)
[2018-04-22] MEDS: MAGNESIUM OXIDE 400 MG TAB (MAG-OX) PO ×2 (08:16→20:27)
[2018-04-22] MEDS: ACYCLOVIR 200 MG CAPSULE PO ×3 (08:16→20:26)
[2018-04-22] MEDS: HumaLOG INSULIN (NovoLOG) PER UNIT SC ×4 (08:16→20:31)
[2018-04-22] MEDS: MULTIVITAMINS/MINERALS THERAP 1 TAB PO (08:16)
[2018-04-22] MEDS: PANTOPRAZOLE 40MG TAB (PROTONIX) PO (08:16)
[2018-04-22] MEDS: ASCORBIC ACID 500 MG TAB PO (08:16)
[2018-04-22] MEDS: metFORMIN (GLUCOPHAGE) 500 MG TAB PO (08:16)
[2018-04-22] MEDS: CARVedilol 6.25 MG TAB PO ×2 (08:17→20:29)
[2018-04-22] MEDS: NYSTATIN OINTMENT 15 GM TOP ×2 (08:17→22:15)
[2018-04-22] MEDS: MIRALAX *UNIT DOSE* 17GM PACKET PO (08:17)
[2018-04-22] MEDS: APIXABAN 2.5 MG TAB (ELIQUIS) PO ×2 (08:17→20:27)
[2018-04-22] MEDS ORDERED: FUROSEMIDE 20 MG/2 ML VIAL (J1940) IV (09:00)
[2018-04-22] MEDS: FUROSEMIDE 40 MG TAB PO ×2 (10:16→12:47)
[2018-04-22 11:28] LABS: BEDSIDE GLUCOSE 219 MG/DL (83-110)
[2018-04-22 16:52] LABS: BEDSIDE GLUCOSE 90 MG/DL (83-110)
[2018-04-22] MEDS ORDERED: FUROSEMIDE 40 MG TAB PO (17:00)
[2018-04-22 20:19] LABS: BEDSIDE GLUCOSE 137 MG/DL (83-110)
[2018-04-22] MEDS: SENNA 8.6 MG TAB (SENOKOT) PO (20:26)
[2018-04-22] MEDS: SIMVASTATIN 10 MG TAB PO (20:27)
[2018-04-22] MEDS: ACETAMINOPHEN TAB 650MG DOSE (2X325MG) PO (20:27)
[2018-04-22] MEDS: FINASTERIDE 5 MG TAB PO (20:27)
[2018-04-22] MEDS: TAMSULOSIN 0.4 MG CAP PO (20:27)
[2018-04-23] MEDS: LevoFLOXacin 500 MG TABLET PO (06:17)
[2018-04-23 06:42] LABS: BEDSIDE GLUCOSE 141 MG/DL (83-110)
[2018-04-23 07:35] LABS: BASO % 0.2 % (0.0-1.0); EOS # 0.1 10^3/uL (0.0-0.50); EOS % 1.5 % (0.0-3.0); HEMATOCRIT 32.1 % (42.0-52.0); HEMOGLOBIN 10.9 g/dl (13.5-17.5); IMMATURE GRANULOCYTE % 0.4 % (0-3.0); LYMPH # 0.4 10^3/uL (1.5-4.5); LYMPH % 8.3 % (24.0-44.0); MEAN CORPUSCULAR HEMOGLOBIN 31.2 pg (27.0-33.0); MONO # 0.8 10^3/uL (0.0-0.8); NEUTROPHILS # 3.5 10^3/uL (1.8-7.7); NEUTROPHILS % 73.6 % (36.0-66.0); PLATELET COUNT, AUTOMATED 202 10^3/uL (150-450); RED BLOOD COUNT 3.49 10^6/uL (4.30-6.10); RED CELL DISTRIBUTION WIDTH 13.2 % (11.5-14.5); WHITE BLOOD COUNT 4.8 10^3/uL (4.0-10.0)
[2018-04-23 07:57] LABS: ANION GAP 8 MEQ/L (8-16); BLOOD UREA NITROGEN 49 MG/DL (7-18); CALCIUM LEVEL 7.2 MG/DL (8.8-10.2); CARBON DIOXIDE LEVEL 28 MEQ/L (21-32); CHLORIDE LEVEL 107 MEQ/L (98-107); CREATININE FOR GFR 1.43 MG/DL (0.70-1.30); GLOMERULAR FILTRATION RATE 49.8 (>35); GLUCOSE, FASTING 151 MG/DL (70-100); MAGNESIUM LEVEL 1.8 MG/DL (1.8-2.4); POTASSIUM SERUM 3.9 MEQ/L (3.5-5.1); SODIUM LEVEL 143 MEQ/L (136-145)
[2018-04-23] MEDS: HumaLOG INSULIN (NovoLOG) PER UNIT SC ×4 (09:18→20:13)
[2018-04-23] MEDS: MULTIVITAMINS/MINERALS THERAP 1 TAB PO (09:18)
[2018-04-23] MEDS: metFORMIN (GLUCOPHAGE) 500 MG TAB PO (09:18)
[2018-04-23] MEDS: CARVedilol 6.25 MG TAB PO ×2 (09:19→20:14)
[2018-04-23] MEDS: MAGNESIUM OXIDE 400 MG TAB (MAG-OX) PO ×2 (09:19→20:13)
[2018-04-23] MEDS: ASCORBIC ACID 500 MG TAB PO (09:20)
[2018-04-23] MEDS: PANTOPRAZOLE 40MG TAB (PROTONIX) PO (09:20)
[2018-04-23] MEDS: ACETAMINOPHEN TAB 650MG DOSE (2X325MG) PO (09:20)
[2018-04-23] MEDS: APIXABAN 2.5 MG TAB (ELIQUIS) PO ×2 (09:20→20:13)
[2018-04-23] MEDS: FUROSEMIDE 40 MG TAB PO (09:21)
[2018-04-23] MEDS: MIRALAX *UNIT DOSE* 17GM PACKET PO (09:21)
[2018-04-23] MEDS: ACYCLOVIR 200 MG CAPSULE PO ×3 (09:21→20:13)
[2018-04-23] MEDS: NYSTATIN OINTMENT 15 GM TOP ×2 (09:22→20:14)
[2018-04-23 11:55] LABS: BEDSIDE GLUCOSE 158 MG/DL (83-110)
[2018-04-23] MEDS: FUROSEMIDE 20 MG TAB PO (15:33)
[2018-04-23 17:29] LABS: BEDSIDE GLUCOSE 108 MG/DL (83-110)
[2018-04-23 20:13] LABS: BEDSIDE GLUCOSE 102 MG/DL (83-110)
[2018-04-23] MEDS: SENNA 8.6 MG TAB (SENOKOT) PO (20:13)
[2018-04-23] MEDS: TAMSULOSIN 0.4 MG CAP PO (20:13)
[2018-04-23] MEDS: FINASTERIDE 5 MG TAB PO (20:13)
[2018-04-23] MEDS: SIMVASTATIN 10 MG TAB PO (20:13)
[2018-04-24] MEDS: LevoFLOXacin 500 MG TABLET PO (05:25)
[2018-04-24 07:21] LABS: BEDSIDE GLUCOSE 158 MG/DL (83-110)
[2018-04-24] MEDS: FUROSEMIDE 40 MG TAB PO (08:00)
[2018-04-24 08:27] LABS: ANION GAP 7 MEQ/L (8-16); BLOOD UREA NITROGEN 48 MG/DL (7-18); CALCIUM LEVEL 7.9 MG/DL (8.8-10.2); CARBON DIOXIDE LEVEL 32 MEQ/L (21-32); CHLORIDE LEVEL 106 MEQ/L (98-107); CREATININE FOR GFR 1.73 MG/DL (0.70-1.30); GLUCOSE, FASTING 145 MG/DL (70-100); MAGNESIUM LEVEL 1.7 MG/DL (1.8-2.4); POTASSIUM SERUM 3.8 MEQ/L (3.5-5.1); SODIUM LEVEL 145 MEQ/L (136-145)
[2018-04-24] MEDS: ASCORBIC ACID 500 MG TAB PO (09:00)
[2018-04-24] MEDS: NYSTATIN OINTMENT 15 GM TOP ×2 (09:00→20:41)
[2018-04-24] MEDS: MIRALAX *UNIT DOSE* 17GM PACKET PO (09:00)
[2018-04-24] MEDS: ACYCLOVIR 200 MG CAPSULE PO ×3 (09:54→20:38)
[2018-04-24] MEDS: PANTOPRAZOLE 40MG TAB (PROTONIX) PO (09:54)
[2018-04-24] MEDS: APIXABAN 2.5 MG TAB (ELIQUIS) PO ×2 (09:55→20:38)
[2018-04-24] MEDS: MULTIVITAMINS/MINERALS THERAP 1 TAB PO (09:55)
[2018-04-24] MEDS: metFORMIN (GLUCOPHAGE) 500 MG TAB PO (09:55)
[2018-04-24] MEDS: MAGNESIUM OXIDE 400 MG TAB (MAG-OX) PO ×2 (09:55→20:39)
[2018-04-24] MEDS: CARVedilol 6.25 MG TAB PO ×2 (09:56→20:39)
[2018-04-24] MEDS: HumaLOG INSULIN (NovoLOG) PER UNIT SC ×4 (09:56→20:40)
[2018-04-24 11:16] LABS: BEDSIDE GLUCOSE 219 MG/DL (83-110)
[2018-04-24] MEDS: FUROSEMIDE 20 MG TAB PO (12:28)
[2018-04-24 16:48] LABS: BEDSIDE GLUCOSE 125 MG/DL (83-110)
[2018-04-24 20:26] LABS: BEDSIDE GLUCOSE 140 MG/DL (83-110)
[2018-04-24] MEDS: TAMSULOSIN 0.4 MG CAP PO (20:38)
[2018-04-24] MEDS: SIMVASTATIN 10 MG TAB PO (20:38)
[2018-04-24] MEDS: FINASTERIDE 5 MG TAB PO (20:38)
[2018-04-24] MEDS: SENNA 8.6 MG TAB (SENOKOT) PO (20:40)
[2018-04-25] MEDS: LevoFLOXacin 500 MG TABLET PO (05:42)
[2018-04-25 07:01] LABS: BASO % 0.2 % (0.0-1.0); EOS # 0.1 10^3/uL (0.0-0.50); EOS % 2.3 % (0.0-3.0); HEMATOCRIT 28.8 % (42.0-52.0); HEMOGLOBIN 9.6 g/dl (13.5-17.5); IMMATURE GRANULOCYTE % 0.5 % (0-3.0); LYMPH # 0.4 10^3/uL (1.5-4.5); LYMPH % 8.3 % (24.0-44.0); MEAN CORPUSCULAR HEMOGLOBIN 30.8 pg (27.0-33.0); MEAN CORPUSCULAR HGB CONC 33.3 g/dl (32.0-36.5); MEAN CORPUSCULAR VOLUME 92.3 fl (80.0-96.0); MONO # 0.7 10^3/uL (0.0-0.8); MONO % 15.1 % (0.0-5.0); NEUTROPHILS # 3.2 10^3/uL (1.8-7.7); NEUTROPHILS % 73.6 % (36.0-66.0); PLATELET COUNT, AUTOMATED 174 10^3/uL (150-450); RED BLOOD COUNT 3.12 10^6/uL (4.30-6.10); RED CELL DISTRIBUTION WIDTH 13.5 % (11.5-14.5); WHITE BLOOD COUNT 4.4 10^3/uL (4.0-10.0)
[2018-04-25 07:23] LABS: ANION GAP 9 MEQ/L (8-16); BLOOD UREA NITROGEN 48 MG/DL (7-18); CALCIUM LEVEL 7.4 MG/DL (8.8-10.2); CARBON DIOXIDE LEVEL 30 MEQ/L (21-32); CHLORIDE LEVEL 105 MEQ/L (98-107); GLOMERULAR FILTRATION RATE 40.8 (>35); GLUCOSE, FASTING 142 MG/DL (70-100); MAGNESIUM LEVEL 1.7 MG/DL (1.8-2.4); POTASSIUM SERUM 3.5 MEQ/L (3.5-5.1); SODIUM LEVEL 144 MEQ/L (136-145)
[2018-04-25] MEDS: HumaLOG INSULIN (NovoLOG) PER UNIT SC ×4 (08:53→21:05)
[2018-04-25] MEDS: MAGNESIUM OXIDE 400 MG TAB (MAG-OX) PO ×2 (08:53→21:14)
[2018-04-25] MEDS: APIXABAN 2.5 MG TAB (ELIQUIS) PO ×2 (08:54→21:15)
[2018-04-25] MEDS: MULTIVITAMINS/MINERALS THERAP 1 TAB PO (08:54)
[2018-04-25] MEDS: MIRALAX *UNIT DOSE* 17GM PACKET PO (08:54)
[2018-04-25] MEDS: PANTOPRAZOLE 40MG TAB (PROTONIX) PO (08:54)
[2018-04-25] MEDS: ACYCLOVIR 200 MG CAPSULE PO ×3 (08:54→21:15)
[2018-04-25] MEDS: ASCORBIC ACID 500 MG TAB PO (08:54)
[2018-04-25] MEDS: NYSTATIN OINTMENT 15 GM TOP ×2 (08:55→21:16)
[2018-04-25 09:38] LABS: KETONE, URINE AUTO RFX TRACE mg/dL (NEGATIVE); MUCUS, URINE RFX SMALL (NEGATIVE); NITRITE, URINE AUTO RFX NEGATIVE (NEGATIVE); RBC, URINE AUTO RFX 10 /HPF (0-3); SPECIFIC GRAVITY UR AUTO RFX 1.013 (1.002-1.035); SQUAM EPITHELIAL CELL UR AURFX 2 /HPF (0-6); YEAST LIKE CELL URINE AUTO RFX SMALL
[2018-04-25 10:36] LABS: LEUKOCYTE ESTERASE UR AUTO RFX 3+ (NEGATIVE); WBC, URINE AUTO RFX 105 /HPF (0-3)
[2018-04-25 11:43] LABS: BEDSIDE GLUCOSE 183 MG/DL (83-110)
[2018-04-25] MEDS: FUROSEMIDE 40 MG TAB PO (12:31)
[2018-04-25] MEDS: CARVedilol 6.25 MG TAB PO ×2 (12:32→21:15)
[2018-04-25 16:49] LABS: BEDSIDE GLUCOSE 173 MG/DL (83-110)
[2018-04-25 20:59] LABS: BEDSIDE GLUCOSE 145 MG/DL (83-110)
[2018-04-25] MEDS: TAMSULOSIN 0.4 MG CAP PO (21:14)
[2018-04-25] MEDS: SIMVASTATIN 10 MG TAB PO (21:14)
[2018-04-25] MEDS: FINASTERIDE 5 MG TAB PO (21:14)
[2018-04-25] MEDS: SENNA 8.6 MG TAB (SENOKOT) PO (21:15)
[2018-04-26] MEDS: LevoFLOXacin 500 MG TABLET PO (05:52)
[2018-04-26 06:55] LABS: BEDSIDE GLUCOSE 149 MG/DL (83-110)
[2018-04-26] MEDS: FUROSEMIDE 40 MG TAB PO (08:00)
[2018-04-26] MEDS: ASCORBIC ACID 500 MG TAB PO (08:54)
[2018-04-26] MEDS: MIRALAX *UNIT DOSE* 17GM PACKET PO (08:54)
[2018-04-26] MEDS: PANTOPRAZOLE 40MG TAB (PROTONIX) PO (08:55)
[2018-04-26] MEDS: MAGNESIUM OXIDE 400 MG TAB (MAG-OX) PO ×2 (08:55→22:08)
[2018-04-26] MEDS: MULTIVITAMINS/MINERALS THERAP 1 TAB PO (08:55)
[2018-04-26] MEDS: APIXABAN 2.5 MG TAB (ELIQUIS) PO ×2 (08:55→22:08)
[2018-04-26] MEDS: HumaLOG INSULIN (NovoLOG) PER UNIT SC ×4 (08:55→21:00)
[2018-04-26] MEDS: NYSTATIN OINTMENT 15 GM TOP ×2 (08:56→22:09)
[2018-04-26] MEDS: ACYCLOVIR 200 MG CAPSULE PO ×3 (08:56→22:08)
[2018-04-26] MEDS: CARVedilol 6.25 MG TAB PO ×2 (09:00→22:09)
[2018-04-26 11:55] LABS: BEDSIDE GLUCOSE 250 MG/DL (83-110)
[2018-04-26 17:37] LABS: BEDSIDE GLUCOSE 93 MG/DL (83-110)
[2018-04-26 20:32] LABS: BEDSIDE GLUCOSE 214 MG/DL (83-110)
[2018-04-26] MEDS: TAMSULOSIN 0.4 MG CAP PO (22:07)
[2018-04-26] MEDS: FINASTERIDE 5 MG TAB PO (22:07)
[2018-04-26] MEDS: SIMVASTATIN 10 MG TAB PO (22:08)
[2018-04-26] MEDS: SENNA 8.6 MG TAB (SENOKOT) PO (22:09)
[2018-04-27] MEDS: LevoFLOXacin 500 MG TABLET PO (06:03)
[2018-04-27 06:34] LABS: BEDSIDE GLUCOSE 173 MG/DL (83-110)
[2018-04-27] MEDS: MULTIVITAMINS/MINERALS THERAP 1 TAB PO (07:44)
[2018-04-27] MEDS: MAGNESIUM OXIDE 400 MG TAB (MAG-OX) PO ×2 (07:44→21:51)
[2018-04-27] MEDS: ASCORBIC ACID 500 MG TAB PO (07:45)
[2018-04-27] MEDS: FUROSEMIDE 40 MG TAB PO (07:45)
[2018-04-27] MEDS: HumaLOG INSULIN (NovoLOG) PER UNIT SC ×4 (07:45→21:00)
[2018-04-27] MEDS: APIXABAN 2.5 MG TAB (ELIQUIS) PO ×2 (07:45→21:52)
[2018-04-27] MEDS: PANTOPRAZOLE 40MG TAB (PROTONIX) PO (07:45)
[2018-04-27] MEDS: CARVedilol 6.25 MG TAB PO ×2 (07:45→21:52)
[2018-04-27] MEDS: NYSTATIN OINTMENT 15 GM TOP ×2 (07:46→21:00)
[2018-04-27] MEDS: ACYCLOVIR 200 MG CAPSULE PO ×3 (07:46→21:52)
[2018-04-27] MEDS: MIRALAX *UNIT DOSE* 17GM PACKET PO (07:46)
[2018-04-27 07:50] LABS: BASO % 0.3 % (0.0-1.0); EOS # 0.1 10^3/uL (0.0-0.50); EOS % 3.5 % (0.0-3.0); HEMATOCRIT 30.9 % (42.0-52.0); HEMOGLOBIN 10.2 g/dl (13.5-17.5); IMMATURE GRANULOCYTE % 0.3 % (0-3.0); LYMPH # 0.4 10^3/uL (1.5-4.5); MEAN CORPUSCULAR HEMOGLOBIN 31.2 pg (27.0-33.0); MEAN CORPUSCULAR VOLUME 94.5 fl (80.0-96.0); MONO # 0.5 10^3/uL (0.0-0.8); MONO % 13.1 % (0.0-5.0); NEUTROPHILS # 2.9 10^3/uL (1.8-7.7); NEUTROPHILS % 73.8 % (36.0-66.0); PLATELET COUNT, AUTOMATED 156 10^3/uL (150-450); RED BLOOD COUNT 3.27 10^6/uL (4.30-6.10); RED CELL DISTRIBUTION WIDTH 13.5 % (11.5-14.5)
[2018-04-27 08:14] LABS: ANION GAP 6 MEQ/L (8-16); BLOOD UREA NITROGEN 42 MG/DL (7-18); CALCIUM LEVEL 7.6 MG/DL (8.8-10.2); CARBON DIOXIDE LEVEL 33 MEQ/L (21-32); CHLORIDE LEVEL 105 MEQ/L (98-107); GLOMERULAR FILTRATION RATE 43.7 (>35); GLUCOSE, FASTING 180 MG/DL (70-100); MAGNESIUM LEVEL 1.7 MG/DL (1.8-2.4); POTASSIUM SERUM 4.3 MEQ/L (3.5-5.1); SODIUM LEVEL 144 MEQ/L (136-145)
[2018-04-27 12:21] LABS: BEDSIDE GLUCOSE 186 MG/DL (83-110)
[2018-04-27 16:40] LABS: BEDSIDE GLUCOSE 157 MG/DL (83-110)
[2018-04-27 17:17] LABS: KETONE, URINE AUTO RFX NEGATIVE (NEGATIVE); NITRITE, URINE AUTO RFX NEGATIVE (NEGATIVE); RBC, URINE AUTO RFX 2 /HPF (0-3); SQUAM EPITHELIAL CELL UR AURFX 1 /HPF (0-6)
[2018-04-27 17:18] LABS: LEUKOCYTE ESTERASE UR AUTO RFX 2+ (NEGATIVE); WBC, URINE AUTO RFX 39 /HPF (0-3)
[2018-04-27] MEDS ORDERED: metFORMIN (GLUCOPHAGE) 500 MG TAB PO (18:00)
[2018-04-27 19:59] LABS: BEDSIDE GLUCOSE 172 MG/DL (83-110)
[2018-04-27] MEDS: TAMSULOSIN 0.4 MG CAP PO (21:51)
[2018-04-27] MEDS: FINASTERIDE 5 MG TAB PO (21:51)
[2018-04-27] MEDS: SENNA 8.6 MG TAB (SENOKOT) PO (21:51)
[2018-04-27] MEDS: SIMVASTATIN 10 MG TAB PO (21:52)
[2018-04-28] MEDS: LevoFLOXacin 500 MG TABLET PO (06:49)
[2018-04-28 06:50] LABS: BEDSIDE GLUCOSE 151 MG/DL (83-110)
[2018-04-28] MEDS: PANTOPRAZOLE 40MG TAB (PROTONIX) PO (08:59)
[2018-04-28] MEDS: HumaLOG INSULIN (NovoLOG) PER UNIT SC ×4 (08:59→20:12)
[2018-04-28] MEDS: MIRALAX *UNIT DOSE* 17GM PACKET PO (08:59)
[2018-04-28] MEDS: ACYCLOVIR 200 MG CAPSULE PO ×3 (09:00→20:13)
[2018-04-28] MEDS: MULTIVITAMINS/MINERALS THERAP 1 TAB PO (09:00)
[2018-04-28] MEDS: CARVedilol 6.25 MG TAB PO ×2 (09:00→20:13)
[2018-04-28] MEDS: NYSTATIN OINTMENT 15 GM TOP ×2 (09:00→20:14)
[2018-04-28] MEDS: FUROSEMIDE 40 MG TAB PO (09:00)
[2018-04-28] MEDS: MAGNESIUM OXIDE 400 MG TAB (MAG-OX) PO ×2 (09:01→20:13)
[2018-04-28] MEDS: APIXABAN 2.5 MG TAB (ELIQUIS) PO ×2 (09:01→20:12)
[2018-04-28] MEDS: ASCORBIC ACID 500 MG TAB PO (09:01)
[2018-04-28] MEDS: metFORMIN (GLUCOPHAGE) 500 MG TAB PO (09:01)
[2018-04-28 11:37] LABS: BEDSIDE GLUCOSE 153 MG/DL (83-110)
[2018-04-28 16:41] LABS: BEDSIDE GLUCOSE 157 MG/DL (83-110)
[2018-04-28] MEDS: FINASTERIDE 5 MG TAB PO (20:12)
[2018-04-28] MEDS: TAMSULOSIN 0.4 MG CAP PO (20:12)
[2018-04-28] MEDS: SIMVASTATIN 10 MG TAB PO (20:13)
[2018-04-28] MEDS: SENNA 8.6 MG TAB (SENOKOT) PO (20:13)
[2018-04-28 20:14] LABS: BEDSIDE GLUCOSE 125 MG/DL (83-110)
[2018-04-29 07:53] LABS: BEDSIDE GLUCOSE 194 MG/DL (83-110)
[2018-04-29] MEDS: PANTOPRAZOLE 40MG TAB (PROTONIX) PO (08:18)
[2018-04-29] MEDS: ASCORBIC ACID 500 MG TAB PO (08:18)
[2018-04-29] MEDS: metFORMIN (GLUCOPHAGE) 500 MG TAB PO ×2 (08:18→17:01)
[2018-04-29] MEDS: MIRALAX *UNIT DOSE* 17GM PACKET PO (08:18)
[2018-04-29] MEDS: FUROSEMIDE 40 MG TAB PO (08:18)
[2018-04-29] MEDS: HumaLOG INSULIN (NovoLOG) PER UNIT SC ×4 (08:18→20:45)
[2018-04-29] MEDS: ACYCLOVIR 200 MG CAPSULE PO ×3 (08:18→20:45)
[2018-04-29] MEDS: MAGNESIUM OXIDE 400 MG TAB (MAG-OX) PO ×2 (08:19→20:43)
[2018-04-29] MEDS: CARVedilol 6.25 MG TAB PO ×2 (08:19→20:43)
[2018-04-29] MEDS: MULTIVITAMINS/MINERALS THERAP 1 TAB PO (08:19)
[2018-04-29] MEDS: APIXABAN 2.5 MG TAB (ELIQUIS) PO ×2 (08:19→20:42)
[2018-04-29] MEDS: NYSTATIN OINTMENT 15 GM TOP ×2 (08:20→20:47)
[2018-04-29 12:26] LABS: BEDSIDE GLUCOSE 110 MG/DL (83-110)
[2018-04-29 16:47] LABS: BEDSIDE GLUCOSE 140 MG/DL (83-110)
[2018-04-29 20:00] LABS: BEDSIDE GLUCOSE 188 MG/DL (83-110)
[2018-04-29] MEDS: SIMVASTATIN 10 MG TAB PO (20:42)
[2018-04-29] MEDS: FINASTERIDE 5 MG TAB PO (20:42)
[2018-04-29] MEDS: TAMSULOSIN 0.4 MG CAP PO (20:43)
[2018-04-29] MEDS: SENNA 8.6 MG TAB (SENOKOT) PO (20:44)
[2018-04-30 07:15] LABS: BASO % 0.3 % (0.0-1.0); EOS # 0.1 10^3/uL (0.0-0.50); EOS % 3.5 % (0.0-3.0); HEMOGLOBIN 9.8 g/dl (13.5-17.5); IMMATURE GRANULOCYTE % 0.3 % (0-3.0); LYMPH # 0.5 10^3/uL (1.5-4.5); LYMPH % 12.7 % (24.0-44.0); MEAN CORPUSCULAR HEMOGLOBIN 31.2 pg (27.0-33.0); MEAN CORPUSCULAR HGB CONC 33.8 g/dl (32.0-36.5); MEAN CORPUSCULAR VOLUME 92.4 fl (80.0-96.0); MONO # 0.6 10^3/uL (0.0-0.8); MONO % 15.4 % (0.0-5.0); NEUTROPHILS # 2.5 10^3/uL (1.8-7.7); NEUTROPHILS % 67.8 % (36.0-66.0); PLATELET COUNT, AUTOMATED 165 10^3/uL (150-450); RED BLOOD COUNT 3.14 10^6/uL (4.30-6.10); RED CELL DISTRIBUTION WIDTH 13.8 % (11.5-14.5); WHITE BLOOD COUNT 3.7 10^3/uL (4.0-10.0)
[2018-04-30] MEDS: HumaLOG INSULIN (NovoLOG) PER UNIT SC ×2 (07:30→12:00)
[2018-04-30 07:32] LABS: ANION GAP 5 MEQ/L (8-16); BLOOD UREA NITROGEN 37 MG/DL (7-18); CARBON DIOXIDE LEVEL 34 MEQ/L (21-32); CHLORIDE LEVEL 105 MEQ/L (98-107); CREATININE FOR GFR 1.76 MG/DL (0.70-1.30); GLOMERULAR FILTRATION RATE 39.2 (>35); GLUCOSE, FASTING 149 MG/DL (70-100); POTASSIUM SERUM 4.3 MEQ/L (3.5-5.1); SODIUM LEVEL 144 MEQ/L (136-145)
[2018-04-30] MEDS: ACYCLOVIR 200 MG CAPSULE PO ×2 (08:09→15:11)
[2018-04-30] MEDS: metFORMIN (GLUCOPHAGE) 500 MG TAB PO ×2 (08:09→20:16)
[2018-04-30] MEDS: MIRALAX *UNIT DOSE* 17GM PACKET PO (08:09)
[2018-04-30] MEDS: MULTIVITAMINS/MINERALS THERAP 1 TAB PO (08:09)
[2018-04-30] MEDS: MAGNESIUM OXIDE 400 MG TAB (MAG-OX) PO ×2 (08:10→20:18)
[2018-04-30] MEDS: PANTOPRAZOLE 40MG TAB (PROTONIX) PO (08:10)
[2018-04-30] MEDS: FUROSEMIDE 40 MG TAB PO (08:10)
[2018-04-30] MEDS: ASCORBIC ACID 500 MG TAB PO (08:10)
[2018-04-30] MEDS: APIXABAN 2.5 MG TAB (ELIQUIS) PO ×2 (08:11→20:17)
[2018-04-30] MEDS: NYSTATIN OINTMENT 15 GM TOP ×2 (08:11→20:17)
[2018-04-30] MEDS: CARVedilol 6.25 MG TAB PO ×2 (08:11→20:18)
[2018-04-30 12:36] LABS: BEDSIDE GLUCOSE 216 MG/DL (83-110)
[2018-04-30] MEDS: glipiZIDE *2.5MG* 1/2 TABLET PO (12:41)
[2018-04-30 17:09] LABS: BEDSIDE GLUCOSE 66 MG/DL (83-110)
[2018-04-30 20:17] LABS: BEDSIDE GLUCOSE 89 MG/DL (83-110)
[2018-04-30] MEDS: FINASTERIDE 5 MG TAB PO (20:17)
[2018-04-30] MEDS: SIMVASTATIN 10 MG TAB PO (20:17)
[2018-04-30] MEDS: SENNA 8.6 MG TAB (SENOKOT) PO (20:17)
[2018-04-30] MEDS: TAMSULOSIN 0.4 MG CAP PO (20:18)
[2018-05-01 06:32] LABS: BEDSIDE GLUCOSE 127 MG/DL (83-110)
[2018-05-01] MEDS: MULTIVITAMINS/MINERALS THERAP 1 TAB PO (10:01)
[2018-05-01] MEDS: glipiZIDE *2.5MG* 1/2 TABLET PO (10:02)
[2018-05-01] MEDS: metFORMIN (GLUCOPHAGE) 500 MG TAB PO ×2 (10:02→17:54)
[2018-05-01] MEDS: FUROSEMIDE 40 MG TAB PO (10:03)
[2018-05-01] MEDS: APIXABAN 2.5 MG TAB (ELIQUIS) PO ×2 (10:03→21:31)
[2018-05-01] MEDS: ASCORBIC ACID 500 MG TAB PO (10:03)
[2018-05-01] MEDS: MAGNESIUM OXIDE 400 MG TAB (MAG-OX) PO ×2 (10:03→21:31)
[2018-05-01] MEDS: PANTOPRAZOLE 40MG TAB (PROTONIX) PO (10:04)
[2018-05-01] MEDS: CARVedilol 6.25 MG TAB PO ×2 (10:04→23:25)
[2018-05-01] MEDS: MIRALAX *UNIT DOSE* 17GM PACKET PO (10:05)
[2018-05-01] MEDS: NYSTATIN OINTMENT 15 GM TOP ×2 (10:05→21:00)
[2018-05-01 11:24] LABS: BEDSIDE GLUCOSE 392 MG/DL (83-110)
[2018-05-01 16:52] LABS: BEDSIDE GLUCOSE 253 MG/DL (83-110)
[2018-05-01 20:38] LABS: BEDSIDE GLUCOSE 196 MG/DL (83-110)
[2018-05-01] MEDS: SENNA 8.6 MG TAB (SENOKOT) PO (21:31)
[2018-05-01] MEDS: SIMVASTATIN 10 MG TAB PO (21:31)
[2018-05-01] MEDS: TAMSULOSIN 0.4 MG CAP PO (21:31)
[2018-05-01] MEDS: FINASTERIDE 5 MG TAB PO (21:31)
[2018-05-01] MEDS: ACETAMINOPHEN TAB 650MG DOSE (2X325MG) PO (23:24)
[2018-05-02 06:45] LABS: BEDSIDE GLUCOSE 118 MG/DL (83-110)
[2018-05-02] MEDS: ASCORBIC ACID 500 MG TAB PO (08:29)
[2018-05-02] MEDS: CARVedilol 6.25 MG TAB PO ×2 (08:29→21:18)
[2018-05-02] MEDS: MULTIVITAMINS/MINERALS THERAP 1 TAB PO (08:29)
[2018-05-02] MEDS: PANTOPRAZOLE 40MG TAB (PROTONIX) PO (08:29)
[2018-05-02] MEDS: metFORMIN (GLUCOPHAGE) 500 MG TAB PO ×2 (08:29→17:18)
[2018-05-02] MEDS: MIRALAX *UNIT DOSE* 17GM PACKET PO (08:29)
[2018-05-02] MEDS: FUROSEMIDE 40 MG TAB PO (08:29)
[2018-05-02] MEDS: APIXABAN 2.5 MG TAB (ELIQUIS) PO ×2 (08:29→21:18)
[2018-05-02] MEDS: NYSTATIN OINTMENT 15 GM TOP ×2 (08:30→21:00)
[2018-05-02] MEDS: glipiZIDE *XL* 2.5MG TABLET PO (08:30)
[2018-05-02] MEDS: MAGNESIUM OXIDE 400 MG TAB (MAG-OX) PO ×2 (08:30→21:18)
[2018-05-02 12:03] LABS: BEDSIDE GLUCOSE 234 MG/DL (83-110)
[2018-05-02 16:56] LABS: BEDSIDE GLUCOSE 140 MG/DL (83-110)
[2018-05-02] MEDS: SENNA 8.6 MG TAB (SENOKOT) PO (21:16)
[2018-05-02] MEDS: FINASTERIDE 5 MG TAB PO (21:16)
[2018-05-02] MEDS: SIMVASTATIN 10 MG TAB PO (21:17)
[2018-05-02] MEDS: TAMSULOSIN 0.4 MG CAP PO (21:18)
[2018-05-02 22:11] LABS: BEDSIDE GLUCOSE 81 MG/DL (83-110)
[2018-05-03 06:40] LABS: BEDSIDE GLUCOSE 71 MG/DL (83-110)
[2018-05-03] MEDS: PANTOPRAZOLE 40MG TAB (PROTONIX) PO (08:18)
[2018-05-03] MEDS: MIRALAX *UNIT DOSE* 17GM PACKET PO (08:18)
[2018-05-03] MEDS: ASCORBIC ACID 500 MG TAB PO (08:19)
[2018-05-03] MEDS: FUROSEMIDE 40 MG TAB PO (08:19)
[2018-05-03] MEDS: metFORMIN (GLUCOPHAGE) 500 MG TAB PO ×2 (08:19→17:12)
[2018-05-03] MEDS: glipiZIDE *XL* 2.5MG TABLET PO (08:19)
[2018-05-03] MEDS: APIXABAN 2.5 MG TAB (ELIQUIS) PO ×2 (08:19→22:16)
[2018-05-03] MEDS: MULTIVITAMINS/MINERALS THERAP 1 TAB PO (08:19)
[2018-05-03] MEDS: CARVedilol 6.25 MG TAB PO ×2 (08:19→22:16)
[2018-05-03] MEDS: MAGNESIUM OXIDE 400 MG TAB (MAG-OX) PO ×2 (08:20→22:17)
[2018-05-03] MEDS: NYSTATIN OINTMENT 15 GM TOP ×2 (08:20→22:17)
[2018-05-03 09:48] LABS: HEMATOCRIT 30.7 % (42.0-52.0); HEMOGLOBIN 10.1 g/dl (13.5-17.5); MEAN CORPUSCULAR HEMOGLOBIN 31.9 pg (27.0-33.0); MEAN CORPUSCULAR HGB CONC 32.9 g/dl (32.0-36.5); MEAN CORPUSCULAR VOLUME 96.8 fl (80.0-96.0); PLATELET COUNT, AUTOMATED 188 10^3/uL (150-450); RED BLOOD COUNT 3.17 10^6/uL (4.30-6.10); RED CELL DISTRIBUTION WIDTH 14.4 % (11.5-14.5); WHITE BLOOD COUNT 4.1 10^3/uL (4.0-10.0)
[2018-05-03 10:09] LABS: ANION GAP 9 MEQ/L (8-16); BLOOD UREA NITROGEN 42 MG/DL (7-18); CARBON DIOXIDE LEVEL 31 MEQ/L (21-32); CHLORIDE LEVEL 106 MEQ/L (98-107); CREATININE FOR GFR 1.75 MG/DL (0.70-1.30); GLOMERULAR FILTRATION RATE 39.4 (>35); GLUCOSE, FASTING 170 MG/DL (70-100); MAGNESIUM LEVEL 1.8 MG/DL (1.8-2.4); POTASSIUM SERUM 4.1 MEQ/L (3.5-5.1); SODIUM LEVEL 146 MEQ/L (136-145)
[2018-05-03 11:38] LABS: BEDSIDE GLUCOSE 152 MG/DL (83-110)
[2018-05-03 16:55] LABS: BEDSIDE GLUCOSE 119 MG/DL (83-110)
[2018-05-03] MEDS: SENNA 8.6 MG TAB (SENOKOT) PO (21:00)
[2018-05-03 21:10] LABS: BEDSIDE GLUCOSE 77 MG/DL (83-110)
[2018-05-03] MEDS: TAMSULOSIN 0.4 MG CAP PO (22:16)
[2018-05-03] MEDS: FINASTERIDE 5 MG TAB PO (22:16)
[2018-05-03] MEDS: SIMVASTATIN 10 MG TAB PO (22:17)
[2018-05-04 06:43] LABS: BEDSIDE GLUCOSE 79 MG/DL (83-110)
[2018-05-04] MEDS: NYSTATIN OINTMENT 15 GM TOP ×2 (09:00→20:37)
[2018-05-04] MEDS: MULTIVITAMINS/MINERALS THERAP 1 TAB PO (09:47)
[2018-05-04] MEDS: APIXABAN 2.5 MG TAB (ELIQUIS) PO ×2 (09:48→20:36)
[2018-05-04] MEDS: MAGNESIUM OXIDE 400 MG TAB (MAG-OX) PO ×2 (09:48→20:34)
[2018-05-04] MEDS: PANTOPRAZOLE 40MG TAB (PROTONIX) PO (09:48)
[2018-05-04] MEDS: ASCORBIC ACID 500 MG TAB PO (09:48)
[2018-05-04] MEDS: FUROSEMIDE 40 MG TAB PO (09:48)
[2018-05-04] MEDS: metFORMIN (GLUCOPHAGE) 500 MG TAB PO ×2 (09:48→18:13)
[2018-05-04] MEDS: MIRALAX *UNIT DOSE* 17GM PACKET PO (09:48)
[2018-05-04] MEDS: CARVedilol 6.25 MG TAB PO ×2 (09:48→20:36)
[2018-05-04 11:45] LABS: BEDSIDE GLUCOSE 151 MG/DL (83-110)
[2018-05-04 16:53] LABS: BEDSIDE GLUCOSE 97 MG/DL (83-110)
[2018-05-04 19:36] LABS: BEDSIDE GLUCOSE 133 MG/DL (83-110)
[2018-05-04] MEDS: FINASTERIDE 5 MG TAB PO (20:36)
[2018-05-04] MEDS: SIMVASTATIN 10 MG TAB PO (20:36)
[2018-05-04] MEDS: TAMSULOSIN 0.4 MG CAP PO (20:36)
[2018-05-04] MEDS: SENNA 8.6 MG TAB (SENOKOT) PO (20:37)
[2018-05-05 05:41] LABS: BEDSIDE GLUCOSE 93 MG/DL (83-110)
[2018-05-05] MEDS: CARVedilol 6.25 MG TAB PO (08:24)
[2018-05-05] MEDS: ASCORBIC ACID 500 MG TAB PO (08:24)
[2018-05-05] MEDS: MAGNESIUM OXIDE 400 MG TAB (MAG-OX) PO (08:24)
[2018-05-05] MEDS: PANTOPRAZOLE 40MG TAB (PROTONIX) PO (08:25)
[2018-05-05] MEDS: FUROSEMIDE 40 MG TAB PO (08:25)
[2018-05-05] MEDS: MULTIVITAMINS/MINERALS THERAP 1 TAB PO (08:25)
[2018-05-05] MEDS: APIXABAN 2.5 MG TAB (ELIQUIS) PO (08:25)
[2018-05-05] MEDS: MIRALAX *UNIT DOSE* 17GM PACKET PO (08:25)
[2018-05-05] MEDS: metFORMIN (GLUCOPHAGE) 500 MG TAB PO (08:25)
[2018-05-05] MEDS: NYSTATIN OINTMENT 15 GM TOP (08:26)
[2018-05-05 11:23] LABS: BEDSIDE GLUCOSE 147 MG/DL (83-110)
== END 2018-05-05 12:05 | DRG 91 ==
LOC: M PM&R 21:00
DX: R26.89 Other abnormalities of gait and mobility (principal); A41.51 Sepsis due to Escherichia coli [E. coli]; N39.0 Urinary tract infection, site not specified; N17.9 Acute kidney failure, unspecified; Z74.09 Other reduced mobility; I48.91 Unspecified atrial fibrillation; E11.649 Type 2 diabetes mellitus with hypoglycemia without coma; I12.9 Hypertensive chronic kidney disease with stage 1 through stage 4 chronic kidney disease, or unspecified chronic kidney disease; K21.9 Gastro-esophageal reflux disease without esophagitis; Z79.899 Other long term (current) drug therapy; Z88.0 Allergy status to penicillin; B02.9 Zoster without complications; N18.3 Chronic kidney disease, stage 3 (moderate); R35.0 Frequency of micturition; Z87.891 Personal history of nicotine dependence; R60.0 Localized edema; R27.8 Other lack of coordination; R53.1 Weakness

== ENCOUNTER → 2018-05-12 | Outpatient (REF) ==
[2018-05-12 15:17] LABS: ANION GAP 10 MEQ/L (8-16); BLOOD UREA NITROGEN 31 MG/DL (7-18); CALCIUM LEVEL 8.5 MG/DL (8.8-10.2); CARBON DIOXIDE LEVEL 33 MEQ/L (21-32); CHLORIDE LEVEL 102 MEQ/L (98-107); CREATININE FOR GFR 1.74 MG/DL (0.70-1.30); GLOMERULAR FILTRATION RATE 39.7 (>35); GLUCOSE, FASTING 168 MG/DL (70-100); NT-PRO BNP 7939 PG/ML (<450); POTASSIUM SERUM 4.4 MEQ/L (3.5-5.1); SODIUM LEVEL 145 MEQ/L (136-145)
== END ==
LOC: SKLAB2 10:18
DX: R05 Cough (principal); E16.4 Increased secretion of gastrin

== ENCOUNTER → 2018-05-19 | Outpatient (REF) ==
[2018-05-19 14:25] LABS: ANION GAP 7 MEQ/L (8-16); BLOOD UREA NITROGEN 34 MG/DL (7-18); CALCIUM LEVEL 8.3 MG/DL (8.8-10.2); CARBON DIOXIDE LEVEL 30 MEQ/L (21-32); CHLORIDE LEVEL 107 MEQ/L (98-107); CREATININE FOR GFR 1.75 MG/DL (0.70-1.30); GLOMERULAR FILTRATION RATE 39.4 (>35); GLUCOSE, FASTING 175 MG/DL (70-100); POTASSIUM SERUM 4.6 MEQ/L (3.5-5.1); SODIUM LEVEL 144 MEQ/L (136-145)
== END ==
LOC: SKLAB2 10:37
DX: D64.9 Anemia, unspecified (principal)

== ENCOUNTER → 2018-06-02 | Outpatient (REF) | payer MEDICARE ==
[2018-06-02 13:24] LABS: HEMATOCRIT 38.1 % (42.0-52.0); HEMOGLOBIN 12.5 g/dl (13.5-17.5); MEAN CORPUSCULAR HEMOGLOBIN 32.1 pg (27.0-33.0); MEAN CORPUSCULAR HGB CONC 32.8 g/dl (32.0-36.5); MEAN CORPUSCULAR VOLUME 97.7 fl (80.0-96.0); PLATELET COUNT, AUTOMATED 255 10^3/uL (150-450); RED CELL DISTRIBUTION WIDTH 14.6 % (11.5-14.5); WHITE BLOOD COUNT 5.9 10^3/uL (4.0-10.0)
[2018-06-02 13:48] LABS: ALBUMIN 2.7 GM/DL (3.2-5.2); ALBUMIN/GLOBULIN RATIO 0.77 (1.00-1.93); ALKALINE PHOSPHATASE 80 U/L (45-117); ALT/SGPT 14 U/L (12-78); ANION GAP 8 MEQ/L (8-16); AST/SGOT 12 U/L (7-37); BILIRUBIN,TOTAL 0.8 MG/DL (0.2-1.0); BLOOD UREA NITROGEN 30 MG/DL (7-18); CALCIUM LEVEL 8.8 MG/DL (8.8-10.2); CARBON DIOXIDE LEVEL 29 MEQ/L (21-32); CHLORIDE LEVEL 109 MEQ/L (98-107); CREATININE FOR GFR 1.46 MG/DL (0.70-1.30); GLOMERULAR FILTRATION RATE 48.6 (>35); GLUCOSE, FASTING 156 MG/DL (70-100); POTASSIUM SERUM 4.7 MEQ/L (3.5-5.1); SODIUM LEVEL 146 MEQ/L (136-145); TOTAL PROTEIN 6.2 GM/DL (6.4-8.2)
== END ==
LOC: M SHH 13:11
DX: A41.9 Sepsis, unspecified organism (principal)
CPT/HCPCS: 80053

== ENCOUNTER 2018-11-05 02:26 | Emergency (ER) | payer MEDICARE ==
[~2018-11-05] VITALS: Ht 170.2 cm; Wt 89.9 kg
[~2018-11-05 02:26] MED LIST changes: +/GLIP10TAB PO; +/MOXI40TA PO; +ACYC200CA PO; +ASPI81TA85 PO; +Acetaminophen Tab PO; -BISACODYL 10 MG SUPP PR; -BISACODYL 5 MG TAB PO; +CARV6.25 PO; -CARVedilol 6.25 MG TAB PO; +CORE25TA PO; -DEXTROSE 50% 50 ML SYRINGE IV; +ELIQ2.5T PO; +FINA5TAB2 PO; -FLEET ENEMA PR; +FLOM0.4C39 PO; +FURO40TA2 PO; +GLIP2.5T6 PO; +GLIP5TAB8 PO; +GLUC500T PO; -GLUCAGON FOR INJ 1 MG VIAL (J1610) SC; -GLUCOSE 4 GM CHEW TABLET PO; +LAMISIL; +LEVA1TAB2 PO; +MAG400TA PO; +METF500T PO; -MOM 30ML SUSPENSION UDC PO; +NYST10OI TOP; -ONDANSETRON 4 MG TAB (S0181) PO; +PANT40TA3 PO; +PEG1POW PO; +SENN18TA PO; +SIMV10TA2 PO; +SIMVPOW2 PO; -SLF 3 ML SYR IV; +TYLE650T30 PO; +TYLENOL PO; +VITA500C24 PO; +VITMTA PO
[2018-11-05 02:57] LABS: HEMATOCRIT 37.1 % (42.0-52.0); MEAN CORPUSCULAR HEMOGLOBIN 31.5 pg (27.0-33.0); MEAN CORPUSCULAR HGB CONC 32.3 g/dl (32.0-36.5); MEAN CORPUSCULAR VOLUME 97.4 fl (80.0-96.0); PLATELET COUNT, AUTOMATED 161 10^3/uL (150-450); RED BLOOD COUNT 3.81 10^6/uL (4.30-6.10); WHITE BLOOD COUNT 23.1 10^3/uL (4.0-10.0)
[2018-11-05] MEDS ORDERED: IPRATROPIUM 0.5MG/ALBUTEROL 2.5MG INH SOL UD 3ML (DUONEB)(J7620) NEB ONE (03:00)
[2018-11-05] MEDS ORDERED: NS 1,000 ML IV ONE (03:00)
[2018-11-05 03:21] LABS: ABG BASE EXCESS -7.7 (-2.0-2.0); ABG HCO3 16.7 MEQ/L (22.0-26.0); ABG O2 SATURATION 95.1 % (95.0-99.0); ABG PARTIAL PRESSURE CO2 30.6 mmHg (35.0-45.0); ABG PARTIAL PRESSURE O2 77.4 mmHg (75.0-100.0); ABG STANDARD HCO3 18.2 MEQ/L (22.0-26.0); ABG TOTAL CO2 17.6 MEQ/L (23.0-31.0); ABG pH (ARTERIAL) 7.355 UNITS (7.350-7.450)
[2018-11-05 03:26] LABS: ALBUMIN 2.7 GM/DL (3.2-5.2); BILIRUBIN,DIRECT 2.9 MG/DL (0.0-0.2); BILIRUBIN,TOTAL 4.2 MG/DL (0.2-1.0); CALCIUM LEVEL 8.6 MG/DL (8.8-10.2); CREATININE FOR GFR 2.36 MG/DL (0.70-1.30); GLOMERULAR FILTRATION RATE 27.9 (>35); LYMPHOCYTES 1 % (16-52); MB/CK RELATIVE INDEX 3.52 (< OR =4); MONOCYTES 6 % (0-8); NEUTROPHILS 91 % (35-75); PLATELET ESTIMATE NORMAL (NORMAL); POTASSIUM SERUM 4.1 MEQ/L (3.5-5.1); THYROID STIMULATING HORMONE 1.62 uIU/ML (0.358-3.740); TOTAL PROTEIN 5.9 GM/DL (6.4-8.2); TROPONIN I 0.45 NG/ML (< 0.10)
[2018-11-05 03:28] LABS: TOXIC VACUOLATION 1+
[2018-11-05] MEDS ORDERED: NS IV ONE (03:45)
[2018-11-05] MEDS ORDERED: LevoFLOXacin IV 750 MG in APPROPRIATE DILUENT 1 EA IV ONE (03:45)
[2018-11-05] MEDS ORDERED: DILUENT IV ONE (03:45)
[2018-11-05] MEDS ORDERED: NOREPINEPHRINE 4 MG/4 ML AMP As Ordered ONE (04:05)
[2018-11-05] MEDS ORDERED: METF500T13 PO (04:12)
[2018-11-05] MEDS ORDERED: FINA5TAB2 PO (04:12)
[2018-11-05] MEDS ORDERED: CALC1TAB19 PO (04:12)
[2018-11-05] MEDS ORDERED: COLA100C5 PO (04:12)
[2018-11-05] MEDS ORDERED: ELIQ2.5T PO (04:12)
[2018-11-05] MEDS ORDERED: FLOM0.4C39 PO (04:12)
[2018-11-05] MEDS ORDERED: NOREPINEPHRINE BITARTRATE 8 MG in D5W 492 ML IV SCH (04:22)
--- NOTE | 2018-11-05 04:28 | REPVR ---
EXAM: CT Head Without Contrast EXAM DATE/TIME: 11/05/2018 3:29 AM CLINICAL HISTORY: 88 years old, male; Injury or trauma; Fall TECHNIQUE: Axial computed tomography images of the head/brain without contrast. All CT scans at this facility use at least one of these dose optimization techniques: automated exposure control; mA and/or kV adjustment per patient size (includes targeted exams where dose is matched to clinical indication); or iterative reconstruction. COMPARISON: No relevant prior studies available. FINDINGS: Brain: There is minimal patchy low attenuation of deep white matter. There is mild prominence of the peripheral sulci. Asymmetric displacement of the left frontal and to a lesser degree anterior left temporal and parietal lobes from the inner table of the skull consistent with chronic left subdural hematoma measuring approximately 9 mm in thickness. Midline shift: Mild midline shift to the right estimated at 8 mm. Ventricles: There is mild prominence of the central ventricular system. Bones/joints: Normal. No acute fracture. Sinuses: Normal as visualized. No acute sinusitis. Mastoid air cells: Normal as visualized. No mastoid effusion. Soft tissues: Normal. IMPRESSION: 1. Minimal chronic ischemic white matter change and mild atrophy. 2. Chronic left frontal subdural hematoma with slight extension around the anterior left temporal lobe and anterior left parietal lobe. 3. Otherwise negative noncontrast head CT. Electronically signed by: Rakan Curry On 11/05/2018 04:27:53 AM
--- NOTE | 2018-11-05 04:36 | REPVR ---
EXAM: CT Cervical Spine Without Contrast EXAM DATE/TIME: 11/05/2018 3:29 AM CLINICAL HISTORY: 88 years old, male; Injury or trauma; Fall; Initial encounter; Concussion /head injury TECHNIQUE: Axial computed tomography images of the cervical spine without intravenous contrast. All CT scans at this facility use at least one of these dose optimization techniques: automated exposure control; mA and/or kV adjustment per patient size (includes targeted exams where dose is matched to clinical indication); or iterative reconstruction. Coronal and sagittal reformatted images were created and reviewed. COMPARISON: No relevant prior studies available. FINDINGS: Vertebrae: No upper thoracic ankylosis caudal to the T1 level. Ankylosis at C5-C6. C6-C7: Moderate interspace narrowing with slight retrolisthesis and bilateral degenerative changes. No spinal stenosis. There is moderate right and mild left neural foraminal stenosis. Discs/Spinal canal/Neural foramina: C2-C3: Slight interspace narrowing with bilateral degenerative changes and no significant spinal or foraminal stenosis. C3-C4: Moderate interspace narrowing with slight anterolisthesis and posterior osteophytes, greatest in the right lateral recess. There are bilateral degenerative changes with slight narrowing of the right lateral recess and moderate right neural foraminal stenosis. C4-C5: Slight interspace narrowing bilateral degenerative changes and no significant spinal or foraminal stenosis. C7-T1: Mild interspace narrowing with degenerative changes of the apophyseal joints. No spinal or foraminal stenosis. Soft tissues: C5-C6: Probable ankylosis with calcification of the posterior longitudinal ligament. There are bilateral degenerative changes with mild right neural foraminal stenosis. Lungs: Lung apices are normal. IMPRESSION: 1. Multilevel degenerative changes with some multilevel neural foraminal stenosis as described. 2. No acute fracture or subluxation. Electronically signed by: Rakan Curry On 11/05/2018 04:36:17 AM
--- NOTE | 2018-11-05 04:46 | REPVR ---
EXAM: CT Chest Without Contrast EXAM DATE/TIME: 11/05/2018 3:29 AM CLINICAL HISTORY: 88 years old, male; Injury or trauma; Fall; Initial encounter; Blunt trauma (contusions or hematomas) TECHNIQUE: Axial computed tomography images of the chest without intravenous contrast. All CT scans at this facility use at least one of these dose optimization techniques: automated exposure control; mA and/or kV adjustment per patient size (includes targeted exams where dose is matched to clinical indication); or iterative reconstruction. Coronal and sagittal reformatted images were created and reviewed. COMPARISON: CR Chest, 1 view 11/05/2018 2:56 AM FINDINGS: Lungs: Mild right lower lobe fibro-atelectatic change and minimal bronchiectasis. Minimal changes are noted in the remaining lungs. Pleural space: Calcified pleural plaque on the right with right diaphragmatic calcification. Minimal loculated right pleural effusion with pleural rind. Trace left pleural effusion. Heart: Coronary artery calcifications are present. Pulmonary arteries: The main pulmonary artery measures 32 mm. Aorta: The ascending thoracic aorta measures 35 mm. Lymph nodes: Unremarkable. No enlarged lymph nodes. Bones/joints: Unremarkable. No acute fracture. Soft tissues: Unremarkable. Kidneys and ureters: Mild left renal atrophy. Nonobstructing right renal calculi. Stomach and bowel: Stent overlying the proximal duodenal sweep. Colonic diverticulosis. Wall thickening of the hepatic flexure and adjacent ascending and transverse colon suggesting nonspecific colitis. IMPRESSION: 1. 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 2. Calcified pleural plaque on the right including diaphragmatic calcifications suggesting asbestos exposure. 3. Minimal loculated right pleural effusion and mild right lower lobe fibro-atelectatic change with minimal bronchiectasis. 4. Trace left pleural effusion with minimal left lower lobe atelectasis. 5. Mild left renal atrophy. 6. Nonobstructing right renal calculi. 7. Stent overlying the proximal duodenal sweep. 8. Colonic diverticulosis. 9. Question of minimal nonspecific colitis involving the right colon. Electronically signed by: Rakan Curry On 11/05/2018 04:46:39 AM
--- NOTE | 2018-11-05 04:55 | REPVR ---
EXAM: CT Abdomen and Pelvis Without Contrast EXAM DATE/TIME: 11/05/2018 3:29 AM CLINICAL HISTORY: 88 years old, male; Injury or trauma; Fall; Initial encounter; Blunt; Generalized TECHNIQUE: Axial computed tomography images of the abdomen and pelvis without contrast. All CT scans at this facility use at least one of these dose optimization techniques: automated exposure control; mA and/or kV adjustment per patient size (includes targeted exams where dose is matched to clinical indication); or iterative reconstruction. Coronal and sagittal reformatted images were created and reviewed. COMPARISON: CT ABD PELVIS W/O CONTRAST 04/08/2018 7:49 PM FINDINGS: Lower thorax: Minimal loculated right pleural effusion and trace left pleural effusion. Mild right lower lobe and minimal left lower lobe fibro-atelectatic change. ABDOMEN: Liver: Normal. No mass. Gallbladder and bile ducts: Status post cholecystectomy. Pancreas: Normal. No ductal dilation. Spleen: Normal. No splenomegaly. Adrenals: Mild fullness of the adrenals bilaterally. Kidneys and ureters: Mild left renal atrophy. Stomach and bowel: Stent in the proximal duodenal sweep and appears displaced. Slight wall thickening of the ascending colon, hepatic flexure and left colon to the sigmoid. Colonic diverticulosis without diverticulitis. Appendix: There are no changes of appendicitis. A normal appendix is not seen. PELVIS: Bladder: There is a Mendoza catheter in the bladder. Reproductive: Unremarkable as visualized. ABDOMEN and PELVIS: Intraperitoneal space: Normal. No free air. No significant fluid collection. Bones/joints: Ankylosis through much of the lumbar spine. Soft tissues: Unremarkable. Vasculature: There is moderate atherosclerotic calcification of the abdominal aorta with extension into the iliac arteries. Lymph nodes: Normal. No enlarged lymph nodes. IMPRESSION: 1. 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 2. Stent in the proximal duodenal sweep which appears displaced and non-functional. 3. Minimal loculated right pleural effusion and trace left pleural effusion with mild right lower lobe and minimal left lower lobe fibro-atelectatic change. 4. Status post cholecystectomy. 5. Mild left renal atrophy. 6. Mendoza catheter in the bladder. 7. Minimal nonspecific colitis segmental colitis. 8. Colonic diverticulosis without diverticulitis Electronically signed by: Rakan Curry On 11/05/2018 04:55:04 AM
[2018-11-05] MEDS ORDERED: NS 1,000 ML IV SCH (05:02)
[2018-11-05] MEDS ORDERED: AMIODARONE 150MG/3ML INJ (J0282) IVP STA (05:21)
[2018-11-05] MEDS ORDERED: MAGNESIUM SULFATE 1 GM/100 ML D5W BAG (10MG/ML) (J3475) As Ordered ONE (05:26)
[2018-11-05] MEDS ORDERED: AMIODARONE HCL 150 MG/100 ML PREMIXED BAG (NEXTERONE) IV ONE (05:30)
[2018-11-05] MEDS ORDERED: MAG SULF 1GM/100ML (MAG RUN) 1 GM in APPROPRIATE DILUENT 1 EA IV ONE ×2 (05:30→06:00)
[2018-11-05 05:33] LABS: MAGNESIUM LEVEL 1.9 MG/DL (1.8-2.4)
[2018-11-05] MEDS ORDERED: AMIODARONE HCL 150 MG in APPROPRIATE DILUENT 1 EA IV STA (05:40)
[2018-11-05 06:15] VITALS: BP 100/49
--- NOTE | 2018-11-05 08:58 | REP ---
PORTABLE CHEST X-RAY: Single view. HISTORY: Short of breath. COMPARISON STUDY: May 12, 2018. FINDINGS: Right hemidiaphragm remains somewhat elevated. There is calcific pleural plaquing noted in the right hemithorax also unchanged and fairly extensive. Volume loss on the right again noted. There is a dextroconvex curvature in the thoracic spine. Mildly prominent heart is seen. The aorta is somewhat tortuous. No infiltrate is seen. There is some chronic fibrosis in the right base. IMPRESSION: Chronic changes on the right. No acute infiltrate. Electronically Signed by Jeff Gilbert MD 11/05/2018 11:25 A
--- NOTE | 2018-11-10 20:37 | ECGEPIP ---
Stationary ECG Study [facility] - ED Test Date: 2018-11-05 Pat Name: JILLIAN WALSH Department: Room: - Gender: M Gre[employer] Operator: : [id number] Requested By: DEXTER Nieves Order Number: [id number] Reading MD: Olivier Hernandez Measurements Intervals [place] Rate: 101 P: -22 MS: 172 QRS: -7 QRSD: 120 T: 158 QT: 238 QTc: 309 Interpretive Statements ATRIAL FIBRILLATION WITH RAPID VENTRICULAR RESPONSE LEFT BUNDLE BRANCH BLOCK SIMILAR TO 04/10/18 Electronically Signed On 11-10-2018 20:37:14 EST by Olivier Hernandez
== END 2018-11-05 06:25 | disposition short-term general hospital (02) ==
LOC: M ED 02:26 → EDBD 02:26 → M ED 06:25
DX: A41.9 Sepsis, unspecified organism (principal); R65.21 Severe sepsis with septic shock; I47.2 Ventricular tachycardia; S06.5X0A Traumatic subdural hemorrhage without loss of consciousness, initial encounter; W18.11XA Fall from or off toilet without subsequent striking against object, initial encounter; Y92.012 Bathroom of single-family (private) house as the place of occurrence of the external cause; I12.9 Hypertensive chronic kidney disease with stage 1 through stage 4 chronic kidney disease, or unspecified chronic kidney disease; E11.9 Type 2 diabetes mellitus without complications; N18.3 Chronic kidney disease, stage 3 (moderate); I48.91 Unspecified atrial fibrillation; Z79.899 Other long term (current) drug therapy; Z79.84 Long term (current) use of oral hypoglycemic drugs; Z79.01 Long term (current) use of anticoagulants; Z88.0 Allergy status to penicillin
CPT/HCPCS: 51702; 70450; 71045; 71250; 72125; 74176; 80048; 80076; 81001; 82550; 82553; 82803; 83605; 83690; 83735; 84443; 84484; 85025; 87040; 87077; 87088; 87186; 92960; 93005; 93041; 94640; 96365; 96375; 99291; J0282; J1956; J3475